=== PATIENT | female | born 1955 | race Caucasian/White ===

== ENCOUNTER 2017-06-20 07:55 | Inpatient (IN) ==
[2017-06-20] MEDS ORDERED: ALBUTEROL/IPRATROPIUM 2.5mg-0.5mg/3ml NEB IH ONE (08:18)
[2017-06-20] MEDS ORDERED: METHYLPREDNISOLONE SOD SUCC 125mg/2ml INJECTION IVP ONE (08:18)
--- OUTSIDE RECORDS SUMMARY | 2017-06-20 08:22 | External Medical Summary | Referral Summary ---
:1955 Author Organization [facility], Manjinder, Surgery Address [address] [place] [address] [place] [address] Care Team Providers Name Role Phone Unique Izquierdo Primary Care Physician Encounter VC Date(s): 01/04/15 - 01/04/15 [facility]jinder, Surgery [address] [place] [address] [place] [address]- Discharge Disposition: 01-Home or Self Care Attending Physician: Jerrell Gallardo MD Admitting Physician: Jerrell Gallardo MD Vital Signs No data available for this section Problem List Condition Effective Dates Status Health Status Informant Acne(Confirmed) Active Allergic rhinitis(Confirmed) Active Allergies(Confirmed) Active Chronic low back pain(Confirmed) Active Diabetes(Confirmed) Active Dry eyes(Confirmed) Active Hay fever(Confirmed) Active High cholesterol(Confirmed) Active Hyperlipidemia(Confirmed) Active Hypertension(Confirmed) Active Irregular heart rhythm(Confirmed) Active Irritable bowel syndrome(Confirmed) Active Lung cancer(Confirmed)1 04/2010 Active Overweight(Confirmed) Active Skin condition(Confirmed) Active Visual problems(Confirmed) Active 1Left Lung See Conversion Allergies, Adverse Reactions, Alerts Substance Reaction Severity Status Albuterol Sulfate Makes Pt Feel Very Dizzy Active azithromycin Hives Active Ipratropium Jber Makes Pt Feel Very Dizzy Active Levaquin Rash Active Swelling levofloxacin rash,swelling Active Medications aspirin 81 mg oral tablet, disintegrating 1 tabs, Oral, Daily Start Date: 01/05/14 Status: Orderedatorvastatin 40 mg oral tablet See Instructions, TAKE ONE TABLET BY MOUTH ONE TIME A DAY, # 90 tabs, 1 Refill(s ), eRx: [facility] #[id number], TAKE ONE TABLET BY MOUTH ONE TIME A DAY Start Date: 05/22/15 Status: Orderedbenazepril 20 mg oral tablet 20 mg 1 tabs, Oral, Daily, # 90 tabs, 3 Refill(s), Pharmacy: [facility] # [id number], 1 tabs Oral Daily Start Date: 07/15/15 Status: OrderedbuPROPion 100 mg oral tablet 100 mg 1 tabs, Oral, Daily, # 30 tabs, 0 Refill(s), other reason (Rx) Start Date: 01/28/15 Status: Orderedestradiol 0.5 mg oral tablet See Instructions, TAKE ONE TABLET BY MOUTH ONE TIME A DAY, # 90 tabs, 2 Refill(s ), eRx: [facility] #[id number], TAKE ONE TABLET BY MOUTH ONE TIME A DAY Start Date: 10/22/14 Status: OrderedFamvir 500 mg oral tablet 1 tabs, Oral, TID, When Have a Fever Blister Start Date: 01/05/14 Status: Orderedmeloxicam 15 mg oral tablet See Instructions, TAKE ONE TABLET BY MOUTH EVERY DAY, # 90 tabs, 2 Refill(s), eRx: [facility] #[id number], TAKE ONE TABLET BY MOUTH EVERY DAY Start Date: 10/22/14 Status: OrderedMultivitamins oral tablet 1 tabs, Oral, Daily, 0 Refill(s) Start Date: 01/05/14 Status: OrderedNorco 7.5 mg-325 mg oral tablet 1 tabs, Oral, q4hr, PRN, # 90 tabs, 0 Refill(s) Start Date: 01/28/15 Status: OrderedOnglyza 5 mg oral tablet See Instructions, TAKE ONE TABLET BY MOUTH DAILY, # 30 tabs, 6 Refill(s), Pharmacy: [facility]#[id number], TAKE ONE TABLET BY MOUTH DAILY Start Date: 04/03/15 Status: OrderedtraMADol 50 mg oral tablet 1-2 tabs, Oral, q6hr, Pain Severe (7-10), DUE FOR APPOINTMENT NEXT MONTH, # 180 tabs, 0 Refill(s) Start Date: 07/17/15 Status: Ordered Results No data available for this section Immunizations Vaccine Date Refusal Reason tetanus/diphth/pertuss (Tdap) adult/adol 12/02/07 influenza virus vaccine, inactivated1 03/23/14 influenza virus vaccine, live 03/08/13 influenza virus vaccine, live 02/26/12 pneumococcal 13-valent conjugate vaccine 01/28/15 pneumococcal 23-polyvalent vaccine 04/14/10 1Result Comment: [03/23/2014] see scanned doc Procedures Procedure Date Related Diagnosis Body Site Removal of tunneled central venous access device, 01/04/15 with subcutaneous port or pump, central or peripheral insertion Insertion of [id number] 05/27/10 Left Thoracotomy 2009 Hysterectomy2 1998 Appendectomy gall bladder 1for lung cancer, Dr. [id number] Social History Social History Type Response Smoking Status Former smoker; Type: Cigarettes1 1Quit In 2006 Assessment and Plan No data available for this section
--- OUTSIDE RECORDS SUMMARY | 2017-06-20 08:22 | External Medical Summary | Referral Summary ---
:1955 Author Organization [facility], Manjinder, Surgery Address [address] [place] [address] [place] [address] Care Team Providers Name Role Phone Unique Izquierdo Primary Care Physician Encounter VC Date(s): 12/28/14 - 12/28/14 [facility] [place], [address] [place] [address] [place] Discharge Diagnosis: History of lung cancer Discharge Diagnosis: Encounter for care related to Port-a-Cath Discharge Disposition: 01-Home or Self Care Attending Physician: Jerrell Gallardo MD Admitting Physician: Jerrell Gallardo MD Referring Physician: Stacie Lopez MD Vital Signs Most recent to oldest [Reference Range]: 1 Temperature Tympanic [36.6-38.1 degC] 37.1 degC (12/28/14 1:32 PM) Peripheral Pulse Rate [60-100 bpm] 80 bpm (12/28/14 1:32 PM) Blood Pressure [90-140/60-90 mmHg] 128/70 mmHg (12/28/14 1:32 PM) Problem List Condition Effective Dates Status Health [...] Very Dizzy Active azithromycin Hives Active Ipratropium Erwin Makes Pt Feel Very Dizzy Active Levaquin Rash Active Swelling levofloxacin rash,swelling Active Medications aspirin 81 mg oral tablet, disintegrating 1 tabs, Oral, Daily Start Date: 01/05/14 Status: Orderedatorvastatin 40 mg oral tablet See Instructions, TAKE ONE TABLET BY MOUTH ONE TIME A DAY, # 90 tabs, 1 Refill(s ), eRx: [facility] #[id number], TAKE ONE TABLET BY MOUTH ONE TIME A DAY Start Date: 05/22/15 Status: Orderedbenazepril 20 mg oral tablet 1 tabs, Oral, Daily, # 90 tabs, 3 Refill(s), Pharmacy: [facility], 1 tabs Oral Daily Start Date: 07/30/14 Status: OrderedbuPROPion 100 mg oral tablet 100 mg 1 tabs, Oral, Daily, # 30 tabs, 0 Refill(s), other reason (Rx) Start Date: 01/28/15 Status: Orderedestradiol 0.5 mg oral tablet See Instructions, TAKE ONE TABLET BY MOUTH ONE TIME A DAY, # 90 tabs, 2 Refill(s ), eRx: [facility] #[id number], TAKE ONE TABLET BY MOUTH ONE TIME A DAY Start Date: 10/22/14 Status: OrderedFamvir 500 mg oral tablet 1 tabs, Oral, TID, When Have a Fever Blister Start Date: 01/05/14 Status: Orderedmeloxicam 15 mg oral tablet See Instructions, TAKE ONE TABLET BY MOUTH EVERY DAY, # 90 tabs, 2 Refill(s), eRx: [facility] #[id number], TAKE ONE TABLET BY MOUTH EVERY DAY Start Date: 10/22/14 Status: OrderedMultivitamins oral tablet 1 tabs, Oral, Daily, 0 Refill(s) Start Date: 01/05/14 Status: OrderedNorco 7.5 mg-325 mg oral tablet 1 tabs, Oral, q4hr, PRN, # 90 tabs, 0 Refill(s) Start Date: 01/28/15 Status: OrderedOnglyza 5 mg oral tablet See Instructions, TAKE ONE TABLET BY MOUTH DAILY, # 30 tabs, 6 Refill(s), Pharmacy: [facility]#[id number], TAKE ONE TABLET BY MOUTH DAILY Start Date: 04/03/15 Status: OrderedtraMADol 50 mg oral tablet 1-2 tabs, Oral, q6hr, Pain Severe (7-10), # 180 tabs, 1 Refill(s) Start Date: 05/01/15 Status: Ordered Results No data available for this section Immunizations Vaccine Date Refusal Reason tetanus/diphth/pertuss (Tdap) adult/adol 12/02/07 influenza virus vaccine, inactivated1 03/23/14 influenza virus vaccine, live 03/08/13 influenza virus vaccine, live 02/26/12 pneumococcal 13-valent conjugate vaccine 01/28/15 pneumococcal 23-polyvalent vaccine 04/14/10 1Result Comment: [03/23/2014] see scanned doc Procedures Procedure Date Related Diagnosis Body Site Insertion of [id number] 05/27/10 Left Thoracotomy 2010 Hysterectomy2 1998 Appendectomy gall bladder 1for lung cancer, Dr. [id number] Social History Social History Type Response Smoking Status Former smoker; Type: Cigarettes1 1Quit In 2006 Assessment and Plan Extracted from: Title: Ambulatory Patient Education Author: Jerrell Gallardo MD Date: Surgery Tunneled Central Venous Catheter Flushing Guide A tunneled central venous catheter should be flushed after medicines, intravenous fluids, or nutrition have been given. Flushing the catheter helps prevent blood and medicine residue from collecting in the catheter and clogging it. The following are instructions to flush your tunneled central venous catheter. Your caregiver may also give you additional flushing instructions. GENERAL TUNNELED CENTRAL VENOUS CATHETER FLUSHING INFORMATION If possible, another person should help you when flushing the catheter. Always wash your hands before touching or flushing the catheter. Each access (lumen, port) of the catheter has a clamp. Open the clamp to flush the catheter or when infusions are being given. Keep the clamp closed when the catheter is not in use. Do not use force to flush the catheter. Do not use a small diameter syringe such as a 3 mL syringe to flush the catheter. Flushing the catheter with a small diameter syringe can burst the catheter. A 10 mL syringe should be used when flushing the catheter. Do not use a sharp-edged clamp (hemostat) to clamp the catheter. If the catheter has heparin instilled in the line, the heparin should be removed before using the catheter. The heparin helps the catheter from becoming clogged when it is not used on a regular basis. WITHDRAWING HEPARIN FROM THE TUNNELED CENTRAL VENOUS CATHETER When the tunneled central venous catheter is not used for long periods of time, heparin may be injected into the catheter lumen(s) and left to "dwell" until it is used again. If heparin has been instilled in the catheter, the heparin must be removed before it can be used. The following are steps to remove heparin from the tunneled central venous catheter: Gather the appropriate supplies as told by your caregiver. Wash your hands thoroughly with soap and water. Put on clean gloves. Vigorously scrub the injection cap for 15 seconds with an alcohol prep pad. Unclamp the catheter. Attach an empty 10 mL syringe to the injection cap. Pull back on the syringe plunger and withdraw 10 milliliters of blood. This is considered a "waste" withdrawal. Dispose the "waste" syringe into an appropriate waste container. Rescrub the injection cap for 15 seconds with an alcohol prep pad. Attach a prefilled 10 mL normal saline syringe to the injection cap. Flush the catheter with normal saline to clear away the blood in the catheter. The catheter can now be used for medicines, intravenous fluids, and nutrition. Follow your caregiver's advice regarding when the tunneled central venous catheter should be flushed with heparin. FLUSHING THE TUNNELED CENTRAL VENOUS CATHETER WITH NORMAL SALINE Normal saline is used to flush the catheter before and after medicines, intravenous fluids, and nutrition are given. It is important to check for a blood return before using the catheter. A blood r eturn is checked to ensure the catheter is open (patent) and is not clogged. The following are instructions to check for a blood return and flush the catheter with normal saline. Gather the appropriate supplies to flush the catheter as instructed by your caregiver. Wash your hands thoroughly with soap and water. Put on clean gloves. Vigorously scrub the injection cap for 15 seconds with an alcohol prep pad. Unclamp the catheter. Attach a 10 mL prefilled normal saline syringe to the injection cap. Flush 5 milliliters of normal saline into the catheter. Pull back on the attached syringe until you see blood in the catheter. W hen blood is identified in the catheter, flush the catheter with the remaining normal saline. The catheter can now be used for medicines, intravenous fluids, and nutrition. After medicines, intravenous fluids, or nutrition have been given, be sure to flush the catheter with 10 milliliters of normal saline. TROUBLESHOOTING THE TUNNELED CENTRAL VENOUS CATHETER If you cannot flush the catheter, check to make sure the catheter is unclamped. The injection cap may need to be changed if blood cannot be completely cleared from the cap or if there is a crack in the injection cap. If the catheter is difficult to flush, flush the catheter with 10 milliliters of normal saline using a "pulsing" flush method. If you do not see blood when you pull back the syringe plunger, change your body position. This can include raising your arms above your head or taking a deep breath and cough. Pull back on the plu nger again. If there is still no blood return, flush with a small amount of saline and change positions, take a deep breath, or cough again. Pull back on the plunger again. If there is still no blood re turn, finish injecting the normal saline. Disconnect the syringe and clamp the catheter. If you cannot get a blood return or the catheter continues to be difficult to flush, it is very important to contact your caregiver. The catheter may be clogged. Your caregiver can troubleshoot and fix problems with the catheter. SEEK IMMEDIATE MEDICAL CARE IF: You notice redness, swelling, pain, or have any type of drainage at or around the catheter insertion site. Your catheter is difficult to flush, or you cannot flush the catheter. You cannot get a blood return from the catheter. Your catheter leaks when flushed or when fluids are infused into it. There are cracks or breaks in the catheter. You have swelling on the arm nearest to the catheter. You have an unexplained fever. Document Released: 04/21/2012 Document Revised: 07/25/2012 Document Reviewed: 04/21/2012 ExitCare Patient Information 2015 [email or web address], [facility]. This information is not intended to replace advice given to you by your health care provider. Make sure you discuss any questions you have with your health care provider. No follow up information was provided. Extracted from: Title: Office Visit Note Author: Jerrell Gallardo MD Date: 12/28/14 Assessment/Plan Encounter for care related to Port-a-Cath Ordered: Office Visit Level 2 New [address]70 History of lung cancer Ordered: Office Visit Level 2 New [address]199 Plan: Removal of Power Port in the operative suite under conscious sedation. I did review the patient's chart including a prior office note performed from her oncologist. I did discuss with the patient what removal of her PowerPort catheter would entail and its associa rashaad risks which included but was not inclusive of bleeding and/or infection.. Patient understood and was scheduled. Future Scheduled TestsReferralReturn to Clinic 07/09/14 7:39 AM Referrals to Other Providers Referred by: Stacie Lopez MD
--- OUTSIDE RECORDS SUMMARY | 2017-06-20 08:22 | External Medical Summary | Referral Summary ---
:1955 Author Organization [facility], Manjinder[address] [place] [address] Care Team Providers Name Role Phone Unique Izquierdo Primary Care Physician Encounter VC Date(s): 03/31/16 - 03/31/16 [facility] [place] [place] [address]- Discharge Diagnosis: Hypertension Discharge Diagnosis: Chronic low back pain Discharge Disposition: 01-Home or Self Care Attending Physician: Unique Izquierdo DO Admitting Physician: Unique Izquierdo DO Vital Signs Most recent to oldest [Reference Range]: 1 Temperature Tympanic [36.6-38.1 degC] 37.6 degC (03/31/16 2:52 PM) Peripheral Pulse Rate [60-100 bpm] 99 bpm (03/31/16 2:52 PM) Blood Pressure [90-140/60-90 mmHg] 130/88 mmHg (03/31/16 2:52 PM) SpO2 96 % (03/31/16 2:52 PM) Problem List Condition Effective Dates Status [...] Very Dizzy Active azithromycin Hives Active Ipratropium Galvin Makes Pt Feel Very Dizzy Active Levaquin Rash Active Swelling levofloxacin rash,swelling Active Medications atorvastatin 40 mg oral tablet See Instructions, TAKE ONE TABLET BY MOUTH ONE TIME A DAY, # 90 tabs, 1 Refill(s ), Pharmacy: [facility] #[id number], TAKE ONE TABLET BY MOUTH ONE TIME A DAY Start Date: 03/31/16 Status: Orderedbenazepril 20 mg oral tablet 20 mg 1 tabs, Oral, Daily, # 90 tabs, 3 Refill(s), Pharmacy: [facility] # [id number], 1 tabs Oral Daily Start Date: 07/15/15 Status: OrderedbuPROPion 150 mg/24 hours (XL) oral tablet, extended release See Instructions, TAKE ONE TABLET BY MOUTH DAILY, # 30 tabs, eRx: [facility] #[id number], TAKE ONETABLET BY MOUTH DAILY Start Date: 03/11/16 Status: Orderedestradiol 0.5 mg oral tablet See Instructions, TAKE ONE TABLET BY MOUTH DAILY, # 90 tabs, 1 Refill(s), Pharmacy: [facility]#[id number], TAKE ONE TABLET BY MOUTH DAILY Start Date: 03/31/16 Status: OrderedFamvir 500 mg oral tablet 1 tabs, Oral, TID, When Have a Fever Blister Start Date: 01/05/14 Status: Orderedmeloxicam 15 mg oral tablet See Instructions, TAKE ONE TABLET BY MOUTH DAILY, # 30 tabs, eRx: [facility] #[id number], TAKE ONETABLET BY MOUTH DAILY Start Date: 03/11/16 Status: OrderedmetFORMIN 1000 mg oral tablet, extended release See Instructions, TAKE ONE TABLET BY MOUTH DAILY, # 30 unknown unit, 3 Refill(s) , eRx: [facility] #[id number], TAKE ONE TABLET BY MOUTH DAILY Start Date: 02/19/16 Status: OrderedMultivitamins oral tablet 1 tabs, Oral, Daily, 0 Refill(s) Start Date: 01/05/14 Status: OrderedNorco 7.5 mg-325 mg oral tablet 1 tabs, Oral, q4hr, PRN, # 90 tabs, 0 Refill(s) Start Date: 03/31/16 Status: OrderedtraMADol 50 mg oral tablet 1-2 tabs, Oral, q6hr, Pain Severe (7-10), # 180 tabs, 0 Refill(s) Start Date: 03/19/16 Status: Orderedtriamcinolone 0.5% topical cream See Instructions, APPLY TOPICALLY TO HANDS TWO TIMES A DAY NEEDED, # 20 g, 5 Refill(s), Pharmacy:[facility] #[id number] Start Date: 08/23/15 Status: OrderedVentolin HFA 90 mcg/inh inhalation aerosol 1 puffs, Inhalation, QID, as needed for wheezing, # 8 g, 6 Refill(s), Pharmacy: [facility] #[id number], 1 puffs Inhalation QID,PRN:as needed for wheezing Start Date: 08/26/15 Status: Ordered Results Chemistry Most recent to oldest [Reference Range]: 1 Sodium Lvl [135-144 mEq/L] 143 mEq/L (03/31/16 3:53 PM) Potassium Lvl [3.5-5.2 mEq/L] 4.7 mEq/L (03/31/16 3:53 PM) Chloride [99-111 mEq/L] 106 mEq/L (03/31/16 3:53 PM) CO2 [22-31 mEq/L] 28 mEq/L (03/31/16 3:53 PM) AGAP [3-20] 9 (03/31/16 3:53 PM) BUN [10-20 mg/dL] 22 mg/dL *HI* (03/31/16 3:53 PM) Glucose Lvl [70-99 mg/dL] 91 mg/dL (03/31/16 3:53 PM) Creatinine Lvl [0.57-1.11 mg/dL] 1.20 mg/dL *HI* (03/31/16 3:53 PM) eGFR [>60 mL/min] 46 mL/min 1 *ABN* (03/31/16 3:53 PM) Calcium Lvl [8.9-10.5 mg/dL] 9.9 mg/dL (03/31/16 3:53 PM) Albumin Lvl [3.5-5.0 gm/dL] 4.5 gm/dL (03/31/16 3:53 PM) Total Protein [6.1-7.7 gm/dL] 7.4 gm/dL (03/31/16 3:53 PM) Globulin [1.8-4.0 gm/dL] 2.9 gm/dL (03/31/16 3:53 PM) ALT [0-55 U/L] 34 U/L (03/31/16 3:53 PM) AST [5-34 U/L] 23 U/L (03/31/16 3:53 PM) Alk Phos [40-150 U/L] 108 U/L (03/31/16 3:53 PM) Bili Total [0.2-1.2 mg/dL] 0.3 mg/dL (03/31/16 3:53 PM) Hgb A1c [4.1-5.6 %] 7.6 % *HI* (03/31/16 3:53 PM) eAvg Glucose 171.4 mg/dL (03/31/16 3:53 PM) 1Result Comment: Multiply eGFR results by 1.21 for race. Immunizations Vaccine Date Refusal Reason tetanus/diphth/pertuss (Tdap) adult/adol 12/02/07 influenza virus vaccine, inactivated 03/31/16 influenza virus vaccine, inactivated1 03/23/14 influenza virus vaccine, live 03/08/13 influenza virus vaccine, live 02/26/12 pneumococcal 13-valent conjugate vaccine 01/28/15 pneumococcal 23-polyvalent vaccine 04/14/10 1Result Comment: [03/23/2014] see scanned doc Procedures Procedure Date Related Diagnosis Body Site Insertion of [id number] 05/27/10 Left Thoracotomy 2010 Hysterectomy2 1998 Appendectomy gall bladder 1for lung cancer, Dr. [id number] Social History Social History Type Response Smoking Status Former smoker; Type: Cigarettes1 1Quit In 2006 Assessment and Plan Extracted from: Title: Office Visit Note Author: Unique Izquierdo DO Date: 03/31/16 Assessment/Plan Chronic low back pain Continue current regimen, return to clinic in 6 months. She understands that if she needs an increase in her pain medication she must be seen sooner. Ordered: Office Visit Level 4 Est 09754 Diabetes A1c today with further recommendations after results. If in good control she can return to clinic in 6 months, if not she should return to clinic in 3 months. Ordered: Hemoglobin A1c Office Visit Level 4 Est 74288 Hyperlipidemia CMP today, we will try to get a fasting lipid panel at a time when she can more forward be cost. Ordered: Comprehensive Metabolic Panel Office Visit Level 4 Est 59544 Hypertension Continue current regimen at this time, return to clinic in 6 months. Ordered: Office Visit Level 4 Est 16386 Need for vaccination Flu shot provided today. Ordered: Office Visit Level 4 Est 61342
--- OUTSIDE RECORDS SUMMARY | 2017-06-20 08:22 | External Medical Summary | Continuity of Care Document ---
:1955 Author Organization [facility] Allergies There is no data. Medications There is no data. Problems There is no data. Procedures There is no data. Results There is no data. Encounters ACCT No. Visit Discharge Status Pt. Type Provider Facility Loc./Unit Complaint Date/Time [id number] 07/10/2013 07/10/2013 CLS Outpatient 08:55:00 23:59:59
--- OUTSIDE RECORDS SUMMARY | 2017-06-20 08:22 | External Medical Summary | Referral Summary ---
:1955 Author Organization [facility], Manjinder[address] [place] [address] Care Team Providers Name Role Phone Unique Izquierdo Primary Care Physician Encounter VC Date(s): 01/28/15 - 01/28/15 [facility] [address] [place] [phone] [place] Discharge Diagnosis: Immunization due Discharge Diagnosis: Chronic low back pain Discharge Diagnosis: Mixed hyperlipidemia Discharge Diagnosis: Diabetes Discharge Disposition: 01-Home or Self Care Attending Physician: Unique Izquierdo DO Admitting Physician: Unique Izquierdo DO Vital Signs Most recent to oldest [Reference Range]: 1 Temperature Tympanic [36.6-38.1 degC] 36.7 degC (01/28/15 9:05 AM) Peripheral Pulse Rate [60-100 bpm] 115 bpm *HI* (01/28/15 9:05 AM) Respiratory Rate [14-20 br/min] 17 br/min (01/28/15 9:05 AM) Blood Pressure [90-140/60-90 mmHg] 140/80 mmHg (01/28/15 9:05 AM) SpO2 97 % (01/28/15 9:05 AM) Problem List Condition Effective Dates Status Health [...] Very Dizzy Active azithromycin Hives Active Ipratropium [place] Makes Pt Feel Very Dizzy Active Levaquin Rash Active Swelling levofloxacin rash,swelling Active Medications aspirin 81 mg oral tablet, disintegrating 1 tabs, Oral, Daily Start Date: 01/05/14 Status: Orderedatorvastatin 40 mg oral tablet See Instructions, TAKE ONE TABLET BY MOUTH ONE TIME A DAY, # 90 tabs, 1 Refill(s ), eRx: [facility] #[id number], TAKE ONE TABLET BY MOUTH ONE TIME A DAY Start Date: 05/22/15 Status: Orderedbenazepril 20 mg oral tablet 20 mg 1 tabs, Oral, Daily, # 90 tabs, 3 Refill(s), Pharmacy: [facility] # [id number], 1 tabs Oral Daily Start Date: 07/15/15 Status: OrderedbuPROPion 100 mg oral tablet 100 mg 1 tabs, Oral, Daily, # 30 tabs, 0 Refill(s), other reason (Rx) Start Date: 01/28/15 Status: Orderedestradiol 0.5 mg oral tablet See Instructions, TAKE ONE TABLET BY MOUTH ONE TIME A DAY, # 90 tabs, 0 Refill(s ), Pharmacy: [facility] #[id number], TAKE ONE TABLET BY MOUTH ONE TIME A DAY Start Date: 07/25/15 Status: OrderedFamvir 500 mg oral tablet 1 tabs, Oral, TID, When Have a Fever Blister Start Date: 01/05/14 Status: Orderedmeloxicam 15 mg oral tablet See Instructions, TAKE ONE TABLET BY MOUTH EVERY DAY, # 90 tabs, 0 Refill(s), Pharmacy: [facility] #[id number], TAKE ONE TABLET BY MOUTH EVERY DAY Start Date: 07/25/15 Status: OrderedMultivitamins oral tablet 1 tabs, Oral, Daily, 0 Refill(s) Start Date: 01/05/14 Status: OrderedNorco 7.5 mg-325 mg oral tablet 1 tabs, Oral, q4hr, PRN, # 90 tabs, 0 Refill(s) Start Date: 01/28/15 Status: OrderedOnglyza 5 mg oral tablet See Instructions, TAKE ONE TABLET BY MOUTH DAILY, # 30 tabs, 6 Refill(s), Pharmacy: [facility]#[id number], TAKE ONE TABLET BY MOUTH DAILY Start [...] Date Related Diagnosis Body Site Insertion of [id number] 05/27/10 Left Thoracotomy 2010 Hysterectomy2 1998 Appendectomy gall bladder 1for lung cancer, Dr. [id number] Social History Social History Type Response Smoking Status Former smoker; Type: Cigarettes1 1Quit In 2006 Assessment and Plan Extracted from: Title: Ambulatory Patient Education Author: Unique Izquierdo DO Date: 01/28/15 Family Medicine Chronic Back Pain When back pain lasts longer than 3 months, it is called chronic back pain. People with chronic back pain often go through certain periods that are more intense (flare-ups). CAUSES Chronic back pain can be caused by wear and tear (degeneration) on different structures in your back. These structures include: The bones of your spine (vertebrae) and the joints surrounding your spinal cord and nerve roots (facets). The strong, fibrous tissues that connect your vertebrae (ligaments). Degeneration of these structures may result in pressure on your nerves. This can lead to constant pain. HOME CARE INSTRUCTIONS Avoid bending, heavy lifting, prolonged sitting, and activities which make the problem worse. Take brief periods of rest throughout the day to reduce your pain. Lying down or standing usually is better than sitting while you are resting. Take ixed-qdr-cesieoa or prescription medicines only as directed by your caregiver. SEEK IMMEDIATE MEDICAL CARE IF: You have weakness or numbness in one of your legs or feet. You have trouble controlling your bladder or bowels. You have nausea, vomiting, abdominal pain, shortness of breath, or fainting. Document Released: 06/10/2005 Document Revised: 07/25/2012 Document Reviewed: 04/16/2012 ExitCare Patient Information 2015 [employer] [facility]. This information is not intended to replace advice given to you by your health care provider. Make sure you discuss any questions you have with your health care provider. No follow up information was provided. Extracted from: Title: Office Visit Note Author: Unique Izquierdo DO Date: 01/28/15 Assessment/Plan Chronic low back pain will refill medication today, return to clinic in 6 mo. Ordered: Office Visit Level 4 Est 18487 Diabetes lab as below. will make adjustments as needed. Ordered: Hemoglobin A1c Office Visit Level 4 Est 34213 Immunization due Ordered: Office Visit Level 4 Est 63746 Mixed hyperlipidemia Ordered: Lipid Panel Office Visit Level 4 Est 32754 Orders: buPROPion, 100 mg 1 tabs, Oral, Daily, # 30 tabs, 0 Refill(s), other reason (Rx) HYDROcodone-acetaminophen, 1 tabs, Oral, q4hr, PRN, # 90 tabs, 0 Refill(s) traMADol, 1-2 tabs, Oral, q6hr, Pain Severe (7-10), # 180 tabs, 0 Refill(s)
--- OUTSIDE RECORDS SUMMARY | 2017-06-20 08:22 | External Medical Summary | Referral Summary ---
:1955 Author Organization [facility], Manjinder[address] [place] [address] Care Team Providers Name Role Phone Unique Izquierdo Primary Care Physician Encounter VC Date(s): 08/23/15 - 08/23/15 [facility] [address] [place] [phone] [place] Discharge Diagnosis: Hyperlipidemia Discharge Diagnosis: Chronic low back pain Discharge Diagnosis: Diabetes Discharge Diagnosis: Hypertension Discharge Disposition: 01-Home or Self Care Attending Physician: Unique Izquierdo DO Admitting Physician: Unique Izquierdo DO Vital Signs Most recent to oldest [Reference Range]: 1 Peripheral Pulse Rate [60-100 bpm] 100 bpm (08/23/15 2:27 PM) Respiratory Rate [14-20 br/min] 18 br/min (08/23/15 2:27 PM) Blood Pressure [90-140/60-90 mmHg] 128/78 mmHg (08/23/15 2:27 PM) SpO2 95 % (08/23/15 2:27 PM) Problem List Condition Effective Dates Status [...] Very Dizzy Active azithromycin Hives Active Ipratropium [place] Makes Pt Feel Very Dizzy Active Levaquin Rash Active Swelling levofloxacin rash,swelling Active Medications aspirin 81 mg oral tablet, disintegrating 1 tabs, Oral, Daily Start Date: 01/05/14 Status: Orderedatorvastatin 40 mg oral tablet See Instructions, TAKE ONE TABLET BY MOUTH ONE TIME A DAY, # 90 tabs, 1 Refill(s ), Pharmacy: [facility] #[id number], TAKE ONE TABLET BY MOUTH ONE TIME A DAY Start Date: 08/23/15 Status: Orderedbenazepril 20 mg oral tablet 20 mg 1 tabs, Oral, Daily, # 90 tabs, 3 Refill(s), Pharmacy: [facility] # [id number], 1 tabs Oral Daily Start Date: 07/15/15 Status: OrderedbuPROPion 150 mg/24 hours (XL) oral tablet, extended release 150 mg 1 tabs, Oral, q24hr, # 30 tabs, 5 Refill(s), Pharmacy: [facility] # [id number] Start Date: 08/23/15 Status: Orderedestradiol 0.5 mg oral tablet See Instructions, TAKE ONE TABLET BY MOUTH ONE TIME A DAY, # 90 tabs, 0 Refill(s ), Pharmacy: [facility] #[id number], TAKE ONE TABLET BY MOUTH ONE TIME A DAY Start Date: 07/25/15 Status: OrderedFamvir 500 mg oral tablet 1 tabs, Oral, TID, When Have a Fever Blister Start Date: 01/05/14 Status: Orderedmeloxicam 15 mg oral tablet See Instructions, TAKE ONE TABLET BY MOUTH EVERY DAY, # 90 tabs, 0 Refill(s), Pharmacy: [facility] #[id number], TAKE ONE TABLET BY MOUTH EVERY DAY Start Date: 07/25/15 Status: OrderedmetFORMIN 1000 mg oral tablet, extended release 1,000 mg 1 tabs, Oral, Daily, # 30 tabs, 5 Refill(s), Pharmacy: [facility] #[id number], 1 tabs Oral Daily Start Date: 08/23/15 Status: OrderedMultivitamins oral tablet 1 tabs, Oral, Daily, 0 Refill(s) Start Date: 01/05/14 Status: OrderedNorco 7.5 mg-325 mg oral tablet 1 tabs, Oral, q4hr, PRN, # 90 tabs, 0 Refill(s) Start Date: 08/23/15 Status: OrderedtraMADol 50 mg oral tablet 1-2 tabs, Oral, q6hr, Pain Severe (7-10), # 180 tabs, 5 Refill(s) Start Date: 08/23/15 Status: Orderedtriamcinolone 0.5% topical cream See Instructions, APPLY TOPICALLY TO HANDS TWO TIMES A DAY NEEDED, # 20 g, 5 Refill(s), Pharmacy:[facility] #[id number] Start Date: 08/23/15 Status: Ordered Results No data available for this section Immunizations Vaccine Date Refusal Reason tetanus/diphth/pertuss (Tdap) adult/adol 12/02/07 influenza virus vaccine, inactivated1 03/23/14 influenza virus vaccine, live 03/08/13 influenza virus vaccine, live 02/26/12 pneumococcal 13-valent conjugate vaccine 01/28/15 pneumococcal 23-polyvalent vaccine 04/14/10 1Result Comment: [03/23/2014] see scanned doc Procedures Procedure Date Related Diagnosis Body Site Insertion of [id number] 05/27/10 Left Thoracotomy 2010 Hysterectomy2 1998 Appendectomy gall bladder 1for lung cancer, Dr. Espitia-BSO Social History Social History Type Response Smoking Status Former smoker; Type: Cigarettes1 1Quit In 2006 Assessment and Plan Extracted from: Title: Office Visit Note Author: Unique Izquierdo DO Date: 08/23/15 Assessment/Plan Chronic low back pain Controlled substance agreement signed today. Tramadol and [place] refilled. Return to clinic in 6 months. We discussed that if she needsany increase in the amount of Norc o that she gets that she must come in for a visit sooner. Ordered: Office Visit Level 4 Est 52138 Diabetes We will get an A1c today. We will start the patient on [id number] mg daily. Ichecked needing [email or web address] this should be $4 for her. Ordered: Hemoglobin A1c Office Visit Level 4 Est 26733 Hyperlipidemia CMP today. Further recommendations after results. Ordered: Comprehensive Metabolic Panel Office Visit Level 4 Est 74267 Hypertension CMP today. Blood pressure appears well-controlled. Return to clinic in 6 months or sooner with problems. Ordered: Office Visit Level 4 Est 70286 Orders: atorvastatin, See Instructions, TAKE ONE TABLET BY MOUTH ONE TIME A DAY, # 90 tabs, 1 Refill(s), Pharmacy: [facility] #[id number], TAKE ONE TABLET BY MOUTH ONE TIME A DAY buPROPion, 150 mg 1 tabs, Oral, q24hr, # 30 tabs, 5 Refill(s), Pharmacy: [facility] #[id number] HYDROcodone-acetaminophen, 1 tabs, Oral, q4hr, PRN, # 90 tabs, 0 Refill(s) metFORMIN, 1,000 mg 1 tabs, Oral, Daily, # 30 tabs, 5 Refill(s), Pharmacy: [facility] #[id number], 1 tabs Oral Daily traMADol, 1-2 tabs, Oral, q6hr, Pain Severe (7-10), # 180 tabs, 5 Refill(s) triamcinolone topical, See Instructions, APPLY TOPICALLY TO HANDS TWO TIMES A DAY NEEDED, # 20 g, 5 Refill(s), Pharmacy: [facility] #[id number]
[2017-06-20] MEDS ORDERED: ALBUTEROL 2.5mg/3ml (0.083%) NEB AEROSOL ONE (08:30)
[2017-06-20] MEDS: SALINE FLUSH 10ml SYRINGE IVF PRN (08:37)
--- NOTE | 2017-06-20 08:53 | XRay Report ---
INDICATION: dyspnea PROCEDURE: CHEST 2-VIEWS UPRIGHT (PA & LAT) Encounter: Initial COMPARISON: June 09, 2010 FINDINGS: Patchy airspace opacities in the right middle lobe. Small left pleural effusion. No pneumothorax. Heart size and mediastinal contours are stable. Pulmonary vascularity is normal. Impression: Right-sided pneumonia. .
[2017-06-20] MEDS ORDERED: CEFTRIAXONE (ER USE ONLY) 1 GM in NS 100 ML IV ONE (09:06)
--- NOTE | 2017-06-20 09:15 | Emergency Department Report ---
SOB HPI - General Chief Complaint: Shortness of Breath/Dyspnea Stated Complaint: sob, getting worse from flu Time Seen by Provider: 06/20/17 08:13 - History of Present Illness 61-year-old female presents with shortness of breath. Patient was diagnosed with influenza and started on Tamiflu. Today would have been her last day to take Tamiflu. However when she woke this morning she was acutely short of breath and wheezing area she has been on a prednisone 50 mg daily dose for 5 days and using an albuterol nebulizer. She did not feel like she had a fever, however she did have sweats during the night last night. No tobacco use. She has had partial lung resection on the left for tumor removal. - Related Data Home Medications Medication Instructions Recorded Confirmed Meloxicam 15 mg PO DAILY #0 tab 01/03/15 06/20/17 Saxagliptin HCl [Onglyza] 5 mg PO DAILY #0 01/03/15 06/20/17 Albuterol HFA Inhaler [Ventolin 2 puff ORAL INH Q4H PRN 06/20/17 06/20/17 Hfa 90 mcg/actuation] Atorvastatin Calcium [Atorvastatin 40 mg PO DAILY 06/20/17 06/20/17 Calcium] Benazepril [Lotensin] 20 mg PO DAILY 06/20/17 06/20/17 BuPROPion XL [Wellbutrin Xl] 150 mg PO DAILY 06/20/17 06/20/17 Estradiol [Estrace] 0.5 mg PO DAILY 06/20/17 06/20/17 Hydrocodone/APAP 7.5/325 [[place] 1 tab PO Q4H PRN 06/20/17 06/20/17 7.5/325] Multivit with Iron-Minerals 1 tab PO DAILY 06/20/17 06/20/17 [Complete Senior] Tramadol [Ultram] 50 - 100 mg PO Q6H PRN 06/20/17 06/20/17 Allergies Allergy/AdvReac Type Severity Reaction Status Date / Time levofloxacin Allergy Mild RASH Verified 06/20/17 08:07 azithromycin Allergy Unknown Unverified 06/20/17 08:07 albuterol AdvReac Mild Verified 06/20/17 08:07 ipratropium AdvReac Mild Verified 06/20/17 08:07 Review of Systems All systems: reviewed and negative except as stated [facility] Medical History (Last Updated 03/16/17 @ 12:25 by Chery Noonan) Diabetes (Chronic Medical) Not insulin dependent. HTN (hypertension) (Chronic Medical) Surgical History: *Hysterectomy. *Left partial lobectomy. *Appendectomy - Social History Smoking status: Never smoker Substance use type: does not use Physical Exam - Limitations Limitations: no limitations - General General appearance: alert, in distress (beating very rapidly) - Normal Exams: Head:: Normocephalic without trauma Cardiovascular:: without murmur or gallop, Pulses 2+ all extremities, capillary refill, <2 seconds all extremities Abdomen:: Bowel sounds positive, soft, non-tender, non-distended, no hepatosplenomegaly, masses or bruits noted Neurological:: Patient is alert, and oriented, cranial nerves, motor/sensory/ cerebellar, exams w/o gross deficits, to observation Psychiatric:: Patient exhibits, appropriate attention, emotion and affect - Respiratory Respiratory exam: Present: respiratory distress, wheezes - Cardiovascular Cardiovascular exam: Present: normal rhythm, tachycardia Course Vital Signs Temperature 99.8 F 06/20/17 08:07 Pulse Rate 142 H 06/20/17 08:07 Respiratory Rate 36 H 06/20/17 08:07 Blood Pressure 136/71 06/20/17 08:07 Pulse Oximetry 89 L 06/20/17 08:07 Temperature 99.8 F 06/20/17 08:07 Pulse Rate 140 H 06/20/17 08:25 Respiratory Rate 22 06/20/17 08:25 Blood Pressure 136/71 06/20/17 08:07 Pulse Oximetry 94 06/20/17 08:25 Shortness of Breath/Dyspnea - [facility] Narrative Medical decision making narrative: IV fluids started, normal saline bolus 1 L. Albuterol nebulizer ordered and Solu -Medrol 125 given IV. CBC CMP ordered, CBC shows white count of 17 with significant left shift. Chest x-ray shows right middle lobe pneumonia. Patient is requiring 4 L nasal cannula to maintain sats at 94%. She does meet sepsis protocol. 1 L normal saline bolus and 1 g dose of Rocephin IV within required time. Lactate is currently pending. D-dimer returned at 330, due to having recently had influenza and then sedentary, as well as a sudden onset of shortness of breath, we will respect the elevated d-dimer and CT angiogram to rule out PE is ordered. She will be admitted to hospitalist - Differential Diagnosis Likely: acute exacerbation of chronic obstructive airways disease, community acquired pneumonia, asthma with exacerbation, pulmonary embolism - Medical Records Attestation: I reviewed the patient's medical records. - Lab Data Attestation: I reviewed the patient's lab results. Result diagrams: 06/20/17 08:25 06/20/17 08:25 Lab Results 06/20/17 06/20/17 06/20/17 Range/Units 08:25 08:25 08:25 WBC 17.3 H (4.5-11.0) T/MM3 RBC 4.79 (4.00-5.20) M/MM3 Hgb 14.1 (12-16) GM/DL Hct 43.1 (36-46) % MCV 90.0 (80-100) UM3 MCH 29.4 (26-34) UUG MCHC 32.7 (31-37) GM/DL RDW Std Deviation 46.9 (36.9-50.2) FL Plt Count 218 (130-400) T/MM3 MPV 9.4 (9.4-12.4) UM3 Immature Gran % (Auto) Not performed Neut % (Auto) Not performed Lymph % (Auto) Not performed [place] % (Auto) Not performed Eos % (Auto) Not performed Baso % (Auto) Not performed Neut # (Auto) Not performed Lymph # (Auto) Not performed [place] # (Auto) Not performed Eos # (Auto) Not performed Baso # (Auto) Not performed Abs Immat Gran (auto) Not performed Neutrophils % (Manual) 81.0 H (33-66) % Band Neutrophils % 7.0 H (0-6) % Lymphocytes % (Manual) 2.0 L (23-45) % Monocytes % (Manual) 10.0 H (0-9.0) % Neutrophils # (Manual) 14.0 H (1.8-7.7) T/MM3 Band Neutrophils # 1.2 T/MM3 Lymphocytes # (Manual) 0.3 L (1-4.8) T/MM3 Monocytes # (Manual) 1.7 H (0-0.8) T/MM3 RBC Morph Comment Normal D-Dimer 303 H (0-230) NG/ML Turbidity < 20 (0-20) Sodium 138 (134-144) MEQ/L Potassium 3.8 (3.6-5) MEQ/L Chloride 101 (98-107) MEQ/L Carbon Dioxide 22 (22-30) MEQ/L Anion Gap 15 (5-15) MEQ/L BUN 29.0 H (7-17) MG/DL Creatinine 1.1 (0.7-1.2) MG/DL GFR Calculation 51 BUN/Creatinine Ratio 26 (6-26) RATIO Glucose 295 H (65-110) MG/DL Calculated Osmolality 283 H (261-280) MOSM/KG Calcium 9.6 (8.4-10.2) MG/DL Total Bilirubin 0.40 (0.20-1.30) MG/DL Icterus Index < 2 (0-7) AST 29 (14-36) U/L ALT 56 H (9-52) U/L Alkaline Phosphatase 102 (38-126) U/L Troponin I < 0.012 (0-0.12) ng/ml B-Natriuretic Peptide 143 (0-175) pg/mL Total Protein 7.7 (6.3-8.2) G/DL Albumin 4.3 (3.5-5.0) G/DL Globulin 3.4 (2.4-3.6) G/DL Albumin/Globulin Ratio 1.3 (1.1-2.2) RATIO Specimen Hemolysis < 15 (0-25) - Radiology Data Attestation: I reviewed the patient's radiology results. Disposition Clinical Impression: Asthma with exacerbation, Community acquired pneumonia, Hypoxemia Disposition: 02 To [facility] Condition: Stable Prescriptions: No Action Meloxicam 15 mg PO DAILY #0 tab Hydrocodone/APAP 7.5/325 [[place] 7.5/325] 1 tab PO Q4H PRN PRN Reason: Pain Estradiol [Estrace] 0.5 mg PO DAILY Benazepril [Lotensin] 20 mg PO DAILY Atorvastatin Calcium [Atorvastatin Calcium] 40 mg PO DAILY BuPROPion XL [Wellbutrin Xl] 150 mg PO DAILY Multivit with Iron-Minerals [Complete Senior] 1 tab PO DAILY Saxagliptin HCl [Onglyza] 5 mg PO DAILY #0 Tramadol [Ultram] 50 - 100 mg PO Q6H PRN PRN Reason: Pain Albuterol HFA Inhaler [Ventolin Hfa 90 mcg/actuation] 2 puff ORAL INH Q4H PRN PRN Reason: Shortness Of Air/Wheezing Referrals: Unique Izquierdo DO [Family Provider] - Time of Disposition: 09:18 - Seen By: physician
[2017-06-20] MEDS ORDERED: IOHEXOL 350mg/ml 75ml INJECTION ONE (09:28)
[2017-06-20] MEDS ORDERED: SALINE FLUSH 10ml SYRINGE ONE (09:28)
--- NOTE | 2017-06-20 09:48 | History & Physical Report ---
History of Present Illness Date: 06/20/17 Chief complaint: SOA HPI: Trina is a 61 yo WF who was previously diagnosed with Influenza. Symptoms onset Wednesday or Wednesday. She was seen by Dr. Izquierdo, and started on Tamiflu. She is scheduled to complete Tamiflu course today, and has been taking prednisone as well. She reports she was feeling better until last night, when she went "downhill fast." She has been taking her Tamiflu as prescribed- has two doses left. She has been feeling more ill, and more SOA and presented to the ED today for further assessment. She has been found to be hypoxic, as well as showing clinical markers for sepsis. While in the ED, she in noted to have a mildly elevated D-Dimer. However, multiple risk factors for PE, including history of malignancy (not active), recent immobility, and +HRT (estrogen). She underwent CTA, which confirmed infiltrates, but no evidence of PE. Given severity of illness, hypoxia, sepsis, failed outpatient therapy- she is to be admitted under the care of the hospitalists. She reports she is feeling a bit better. We reviewed allergies- she states no allergy to any antibiotics or inhaled medications. She uses ProAir (albuterol) at home w/o difficulty. She only has issues with one OTC cold medication, which causes palpitations. She cannot recall the name. We reviewed current symptoms, at bedside- discussed plan of care and questions answered. Chart reviewed for collateral information. Review of Systems All systems PM: 10-point ROS was reviewed, no additional remarkable complaints except - Constitutional Constitutional: Present: anorexia, chills, fatigue, fever(s), headache(s) - Cardiovascular Cardiovascular: Present: dyspnea on exertion. Absent: chest pain, palpitations , edema - Respiratory Respiratory: Present: cough, dyspnea, dyspnea on exertion, wheezing, chest congestion. Absent: hemoptysis - Gastrointestinal Gastrointestinal: Present: diarrhea. Absent: abdominal pain, constipation - Musculoskeletal Musculoskeletal: Present: back pain (chronic) - Neurological Neurological: Present: headache(s) (earlier this week, resolved). Absent: convulsions, frequent falls Past Medical History Clinic Medical History Diabetes (Chronic Medical) Not insulin dependent. HTN (hypertension) (Chronic Medical) Adenocarcinoma of the left lung ([facility]. [facility]) oral HSV Anxiety/Depression HLD Surgical History: *Hysterectomy. *Left partial lobectomy (Dr. Oma Tripp). * Appendectomy. Port-a-cath insertion/removal Family History: Mother- CAD Father- unknown Family History Updates: as above. - Social History Smoking status: Former smoker Household members: spouse Current residence: Apartment/Private Home Medications Home Medications Medication Instructions Recorded Confirmed Type Meloxicam 15 mg PO DAILY #0 tab 01/03/15 06/20/17 History Saxagliptin HCl [Onglyza] 5 mg PO DAILY #0 01/03/15 06/20/17 History Albuterol HFA Inhaler [Ventolin 2 puff ORAL INH Q4H PRN 06/20/17 06/20/17 History Hfa 90 mcg/actuation] Atorvastatin Calcium [Atorvastatin 40 mg PO DAILY 06/20/17 06/20/17 History Calcium] Benazepril [Lotensin] 20 mg PO DAILY 06/20/17 06/20/17 History BuPROPion XL [Wellbutrin Xl] 150 mg PO DAILY 06/20/17 06/20/17 History Estradiol [Estrace] 0.5 mg PO DAILY 06/20/17 06/20/17 History Hydrocodone/APAP 7.5/325 [Sharon 1 tab PO Q4H PRN 06/20/17 06/20/17 History 7.5/325] Multivit with Iron-Minerals 1 tab PO DAILY 06/20/17 06/20/17 History [Complete Senior] Tramadol [Ultram] 50 - 100 mg PO Q6H PRN 06/20/17 06/20/17 History Allergies Allergy/AdvReac Type Severity Reaction Status Date / Time No Known Allergies Allergy Verified 06/20/17 11:23 Exam Vital Signs: Temperature 99.8 F 06/20/17 08:07 Pulse Rate 126 H 06/20/17 09:00 Respiratory Rate 28 H 06/20/17 09:00 Blood Pressure 142/74 H 06/20/17 09:15 Pulse Oximetry 93 06/20/17 09:00 Telemetry Rhythm: Sinus Tachycardia Height/Weight/BMI: Height 1.57 m Weight 106.9 kg - Constitutional Present: moderate distress, obese, cooperative - Routine HEENT Exam Head: Present: normocephalic, atraumatic Eye: Present: EOMI, PERRL ENT: Present: mucous membranes moist - Routine Neck Exam Present: supple. Absent: JVD, carotid bruit, swelling - Routine Respiratory Exam Present: dyspnea (mild-moderate), decreased breath sounds, rhonchi, wheezes, diminished air movement - Routine Cardiovascular Exam Present: RRR, S1, S2, no murmur - Routine Abdominal Exam Present: soft, normoactive bowel sounds, non distended, non tender - Routine Extremities Exam Present: no edema, non tender. Absent: calf tenderness, Teresa's sign - Routine Skin Exam Present: intact, dry, warm - Routine Neurological Exam Present: alert, oriented X3, CN II-XII intact, moving all extremities - Routine Psychiatric Exam Present: normal affect, cooperative, good insight Results - Labs CBC & Chem 7: 06/20/17 08:25 06/20/17 08:25 Microbiology Results: Microbiology 06/20/17 09:17 Urine, Voided (Cc/notcc) Urine Culture - Preliminary Culture Initiated - Results Pending 06/20/17 08:30 Peripheral/Iv Start Blood Culture - Preliminary Culture Initiated - Results Pending 06/20/17 08:25 Peripheral/Iv Start Blood Culture - Preliminary Culture Initiated - Results Pending - Imaging and Cardiology Chest x-ray Status: image reviewed by me Additional comments: FINDINGS: Patchy airspace opacities in the right middle lobe. Small left pleural effusion. No pneumothorax. Heart size and mediastinal contours are stable. Pulmonary vascularity is normal. Impression: Right-sided pneumonia. . CT scan - chest Status: image reviewed by me, pending Additional comments: CT chest Negative for PE Patchy infiltrates. Final pending Assessment and Plan (1) Community acquired pneumonia Current visit: Yes Status: Acute (2) Hypoxemia Current visit: Yes Status: Acute Assessment and Plan: Impression: Influenza Post-viral CAP Acute hypoxemic respiratory failure Sepsis DM2 HTN HLD Hx of adenocarcinoma of the lung HRT on estrogen Anxiety/depression Plan: 06/19/17 Dr. Berrios PCP: Dr. Jordy Izquierdo Sepsis guidelines- start aggressive abx therapy. Antibiotics/Steroids. O2. She is not allergic to nebulized medications- will start. IV steroids. IVF. Tele. Monitor CXR. Insulin for BG control. ADA diet. Insulin for BG control. Continue home medications as appropriate. Aggressive DVT px. Hold HRT given risk of DVT. D/W pt and -they are in agreement. DVT Prophylaxis: SCD's, Lovenox Resuscitation Status: Full Code - Physician Narrative Physician: Win Berrios MD Narrative: Date: 06/20/17 Time: 1420 I have independently evaluated and examined this patient. I reviewed the chart, the patient's history, and the PAGINATOR/PA's documented findings as above. We discussed and formulated the assessment and plan as above with additions as below: 61 yo dx with influenza on Wed. She felt she was getting better until becoming quite soa last night. She presented to the ED. She says her breathing is better now that she is getting O2 (2L/min). She reports getting soa talking though. She had f/c at home. She has been taking Tamiflu and prednisone. CXR and CT were consistent with pneumonia. She says she is coughing but unable to produce sputum. NAD. Lungs have rhonchi and decreased breath sounds. RRR. S/NT/ND +BS. No edema. Will continue Tamiflu and start Rocephin/Zithromax. Follow lactate level. 1 L NS. Breathing treatments, Solu-medrol and mucolytics. CTA ruled out PE. Will place on Lantus/Novolog while hospitalized. Encourage activity. Lovenox for DVT ppx. Sepsis Assessment - Evaluation SIRS Criteria: pulse > 90 beats/minute, WBC > 12,000, RR > 20 Severe Sepsis: lactate > 2.0 mg/dL Hospital Course Summary Disclaimer: The visit summary below is not to be considered part of the above Progress Note. Hospital Course: Impression: Influenza Post-viral CAP Acute hypoxemic respiratory failure Sepsis DM2 HTN HLD Hx of adenocarcinoma of the lung HRT on estrogen Anxiety/depression Plan: 06/19/17 Dr. Berrios PCP: Dr. Jordy Izquierdo Sepsis guidelines- start aggressive abx therapy. Antibiotics/Steroids. O2. She is not allergic to nebulized medications- will start. IV steroids. IVF. Tele. Monitor CXR. Insulin for BG control. ADA diet. Insulin for BG control. Continue home medications as appropriate. Aggressive DVT px. Hold HRT given risk of DVT. D/W pt and -they are in agreement. Will continue Tamiflu and start Rocephin/Zithromax. Follow lactate level. 1 L NS. Breathing treatments, Solu-medrol and mucolytics. CTA ruled out PE. Will place on Lantus/Novolog while hospitalized. Encourage activity. Lovenox for DVT ppx.
[2017-06-20 10:33] VITALS: BMI 43.2
[2017-06-20] MEDS ORDERED: HYDROCODONE/APAP 7.5 MG/325 MG TABLET PO PRN (11:29)
[2017-06-20] MEDS ORDERED: ALBUTEROL 2.5mg/3ml (0.083%) NEB AEROSOL PRN (11:33)
[2017-06-20] MEDS ORDERED: DEXTROSE 50% SYRINGE 50ml (1 AMP) IVP PRN (11:36)
[2017-06-20] MEDS ORDERED: GLUCOSE ORAL GEL 40% 37.5gm PO PRN (11:36)
[2017-06-20] MEDS: INSULIN ASPART 100unit/ml INJECTION SQ PRN ×3 (12:32→20:18)
[2017-06-20] MEDS: BuPROPion XL 150mg (24HR) TABLET PO SCH (12:33)
[2017-06-20] MEDS: TRAMADOL 50 MG TABLET PO PRN ×2 (12:33→20:25)
[2017-06-20] MEDS ORDERED: GUAIFENESIN 400MG TABLET PO PRN (14:23)
[2017-06-20] MEDS: BUDESONIDE INH.SOLN 0.5mg/2ml NEB AEROSOL SCH ×2 (14:31→19:49)
[2017-06-20] MEDS: ALBUTEROL/IPRATROPIUM 2.5mg-0.5mg/3ml NEB AEROSOL SCH ×2 (14:31→19:49)
[2017-06-20] MEDS ORDERED: NS 1,000 ML IV SCH (14:45)
[2017-06-20] MEDS: ENOXAPARIN 40 MG/0.4 ML INJECTION SQ SCH (14:58)
[2017-06-20] MEDS: METHYLPREDNISOLONE SOD SUCC 125mg/2ml INJECTION IVP SCH ×2 (14:58→20:22)
[2017-06-20] MEDS: AZITHROMYCIN IV 500 MG in NS 250ml 250 ML IV SCH (14:59)
[2017-06-20] MEDS: ATORVASTATIN 40 MG TABLET PO SCH (20:16)
[2017-06-20] MEDS: INSULIN GLARGINE 100unit/ml INJECTION SQ SCH (20:16)
[2017-06-21] MEDS: METHYLPREDNISOLONE SOD SUCC 125mg/2ml INJECTION IVP SCH ×3 (03:09→20:47)
[2017-06-21] MEDS: INSULIN ASPART 100unit/ml INJECTION SQ PRN (06:29)
[2017-06-21] MEDS: ALBUTEROL/IPRATROPIUM 2.5mg-0.5mg/3ml NEB AEROSOL SCH ×4 (07:30→19:10)
[2017-06-21] MEDS: BUDESONIDE INH.SOLN 0.5mg/2ml NEB AEROSOL SCH ×2 (07:30→19:09)
[2017-06-21] MEDS: BuPROPion XL 150mg (24HR) TABLET PO SCH (08:26)
[2017-06-21] MEDS: ENOXAPARIN 40 MG/0.4 ML INJECTION SQ SCH (08:26)
--- NOTE | 2017-06-21 08:51 | CT Scan Report ---
Indication: dyspnea PROCEDURE: CT angio pulm emboli: Encounter: Initial Comparison: None Technique: Axial CT pulmonary angiographic phase images were performed through the chest after the administration of intravenous contrast. Coronal and Sagittal three-dimensional volume rendered reconstructed images were created and reviewed. Automated Exposure Control and Iterative Reconstruction dose reducing techniques were utilized. Contrast: Omnipaque 350 70 mL FINDINGS: There are scattered patchy somewhat centrilobular poorly defined nodules with both upper and lower lung zone distribution. Pulmonary arteries: There is no evidence for right heart strain. No filling defects to suggest acute pulmonary embolus. Cardiovascular: No pericardial effusion. Cardiac size is normal. No pericardial effusion. Aorta is well opacified. There is no aortic dissection. Lymph nodes: No supraclavicular adenopathy. There are no enlarged axillary, hilar, or mediastinal lymph nodes. Pleura: No pleural effusion is present. There is perhaps mild degenerative disc disease of the thoracic spine. The vertebral body heights appear relatively well-preserved. IMPRESSION: Nonspecific, somewhat scattered and poorly defined centrilobular this could represent postinfectious or postinflammatory process. .
[2017-06-21] MEDS: TRAMADOL 50 MG TABLET PO PRN ×2 (09:05→20:46)
--- NOTE | 2017-06-21 09:32 | XRay Report ---
Indication: pneumonia PROCEDURE: XR chest 2V: Encounter: Initial Comparison: CT angio chest dated 06/20/2017 Findings: There are scant patchy poorly defined interstitial appearing nodular opacities in the mid to lower lung peralta with blunting of the left costophrenic angle. Overall heart size is normal. No definite pulmonary vascular congestion. Impression: Scattered nonspecific patchy somewhat poorly defined nodular opacities with blunting of the left costophrenic angle, likely representing pleural parenchymal scarring. No significant change from prior exam. .
[2017-06-21] MEDS: CEFTRIAXONE 1 G in NS 50 ML IV SCH (09:38)
[2017-06-21] MEDS ORDERED: VANCOMYCIN - PHARMACY CONSULT MC ONE (09:42)
--- NOTE | 2017-06-21 11:01 | Pharmacy Consult-Antibiotics ---
Pharmacy Consult-Vancomycin - Laboratory Information WBC 17.8 T/MM3 (4.5-11.0) H 06/21/17 03:54 BUN 25.0 MG/DL (7-17) H 06/21/17 03:54 Creatinine 1.0 MG/DL (0.7-1.2) 06/21/17 03:54 - Consult Information VANCOMYCIN CONSULT: Dx: Pneumonia Current Renal Fx: SCr = 1.0mg/dl. Will give Vancomycin 1,500mg IV q12hrs. Will continue to monitor and adjust regimen to maintain therapeutic levels. Thank you.
[2017-06-21] MEDS ORDERED: INSULIN ASPART 100unit/ml INJECTION SQ ONE ×4 (11:30→20:46)
--- NOTE | 2017-06-21 11:59 | Progress Note ---
- Date 06/21/17 Subjective: Says her breathing is getting better. Just getting back to bed after walking around in the room and is soa. Cough is more productive. Says her appetite is improving. She says her chronic low back pain is not any different than usual. Objective Vital signs: Temperature 96.2 F L 06/21/17 07:54 Pulse Rate 107 H 06/21/17 08:00 Respiratory Rate 24 06/21/17 11:16 Blood Pressure 141/82 H 06/21/17 07:54 Pulse Oximetry 95 06/21/17 11:16 Height/Weight/BMI: Height 5 ft 2 in Weight 105.8 kg Body Mass Index 43.2 - Constitutional Present: well nourished, well developed - Routine HEENT Exam Eye: Present: EOMI ENT: Present: mucous membranes moist - Routine Respiratory Exam Present: decreased breath sounds, rhonchi - Routine Cardiovascular Exam Present: RRR, no murmur - Routine Abdominal Exam Present: soft, normoactive bowel sounds, non distended, non tender - Routine Extremities Exam Present: no edema - Routine Neurological Exam Present: alert, oriented X3, moving all extremities Results - Labs CBC & Chem 7: 06/21/17 03:54 06/21/17 03:54 Assessment and Plan (1) Community acquired pneumonia Current visit: Yes Status: Acute (2) Hypoxemia Current visit: Yes Status: Acute Assessment and Plan: Impression: Influenza Post-viral CAP s. aureus bactermia Acute hypoxemic respiratory failure Sepsis DM2, uncontrolled on steroids HTN HLD Hx of adenocarcinoma of the lung HRT on estrogen Anxiety/depression Plan: Lactate down to 1.6. Continuing rocephin/zithromax. Starting Vanco. Will consult Dr. Jackson. Repeat blood cx in AM. Decrease iv steroids to q12. O2. Continue nebulized medications. IVF. Tele. Monitor CXR. Insulin for BG control. ADA diet. Increase sliding scale. Continue home medications as appropriate. Aggressive DVT px. Hold HRT given risk of DVT. - Physician Narrative Narrative: Date: 06/21/17 Time: 1154 Hospital Course Summary Disclaimer: The visit summary below is not to be considered part of the above Progress Note. Hospital Course: Impression: Influenza Post-viral CAP Acute hypoxemic respiratory failure Sepsis DM2 HTN HLD Hx of adenocarcinoma of the lung HRT on estrogen Anxiety/depression Plan: 06/20/17 Dr. Berrios PCP: Dr. Jordy Izquierdo Sepsis guidelines- start aggressive abx therapy. Antibiotics/Steroids. O2. She is not allergic to nebulized medications- will start. IV steroids. IVF. Tele. Monitor CXR. Insulin for BG control. ADA diet. Insulin for BG control. Continue home medications as appropriate. Aggressive DVT px. Hold HRT given risk of DVT. D/W pt and -they are in agreement. Will continue Tamiflu and start Rocephin/Zithromax. Follow lactate level. 1 L NS. Breathing treatments, Solu-medrol and mucolytics. CTA ruled out PE. Will place on Lantus/Novolog while hospitalized. Encourage activity. Lovenox for DVT ppx. 06/21
[2017-06-21] MEDS: AZITHROMYCIN IV 500 MG in NS 250ml 250 ML IV SCH (14:20)
[2017-06-21] MEDS: ATORVASTATIN 40 MG TABLET PO SCH (20:46)
[2017-06-21] MEDS: SALINE FLUSH 10ml SYRINGE IVF PRN (20:47)
[2017-06-21] MEDS: INSULIN GLARGINE 100unit/ml INJECTION SQ SCH (20:47)
[2017-06-22] MEDS: ALBUTEROL/IPRATROPIUM 2.5mg-0.5mg/3ml NEB AEROSOL SCH ×4 (06:35→19:00)
[2017-06-22] MEDS: BUDESONIDE INH.SOLN 0.5mg/2ml NEB AEROSOL SCH ×2 (06:35→19:00)
[2017-06-22] MEDS: INSULIN ASPART 100unit/ml INJECTION SQ PRN ×3 (06:55→21:03)
[2017-06-22] MEDS: TRAMADOL 50 MG TABLET PO PRN ×3 (08:01→21:01)
[2017-06-22] MEDS: METHYLPREDNISOLONE SOD SUCC 125mg/2ml INJECTION IVP SCH ×2 (08:01→21:03)
[2017-06-22] MEDS: BuPROPion XL 150mg (24HR) TABLET PO SCH (08:01)
[2017-06-22] MEDS: ENOXAPARIN 40 MG/0.4 ML INJECTION SQ SCH (08:03)
[2017-06-22] MEDS: CEFTRIAXONE 1 G in NS 50 ML IV SCH (08:03)
[2017-06-22] MEDS: BENAZEPRIL 20 MG TABLET PO SCH (10:22)
--- NOTE | 2017-06-22 10:46 | Progress Note ---
- Date 06/22/17 Subjective: Patient seen during her nebulizer treatment. She has many questions about her plan of care. She is feeling better. Cough and breathing are improving. No CP , n/v. Bowels are moving. Appetite is good. O2 needs are improving. Down to 0.5L from 2L. Objective Vital signs: Temperature 97.1 F 06/22/17 07:00 Pulse Rate 96 06/22/17 07:00 Respiratory Rate 22 06/22/17 10:10 Blood Pressure 151/87 H 06/22/17 08:09 Pulse Oximetry 96 06/22/17 10:10 Height/Weight/BMI: Height 1.57 m Weight 106.7 kg Body Mass Index 43.2 - Constitutional Present: no acute distress, well nourished, well developed, obese - Routine HEENT Exam Head: Present: normocephalic, atraumatic - Routine Respiratory Exam Present: CTA bilaterally. Absent: wheezes Comments: post breathing tx - Routine Cardiovascular Exam Present: RRR, no murmur - Routine Abdominal Exam Present: soft, non distended, non tender - Routine Extremities Exam Present: no edema, normal capillary refill - Routine Skin Exam Present: dry, warm - Routine Neurological Exam Present: alert, oriented X3 - Routine Lymphatic Exam Lymphatic: Absent: adenopathy - Routine Psychiatric Exam Present: normal affect, cooperative Results - Labs CBC & Chem 7: 06/22/17 07:59 06/22/17 07:59 Labs: Laboratory Tests 06/20/17 06/21/17 06/22/17 08:25 03:54 07:59 WBC 17.3 H 17.8 H 17.4 H Laboratory Tests 06/21/17 06/21/17 06/21/17 11:15 17:33 20:38 Glucometer 402 395 375 Microbiology Results: Microbiology 06/22/17 07:59 Peripheral/Iv Start Blood Culture - Preliminary Culture Initiated - Results Pending 06/22/17 07:58 Peripheral/Iv Start Blood Culture - Preliminary Culture Initiated - Results Pending 06/21/17 15:45 Sputum, Cf Patient Gram Stain - Final 06/21/17 15:45 Sputum, Cf Patient Sputum Culture - Preliminary Culture Initiated - Results Pending Assessment and Plan (1) Community acquired pneumonia Current visit: Yes Status: Acute (2) Hypoxemia Current visit: Yes Status: Acute Assessment and Plan: Impression Influenza Post-viral CAP S. aureus bactermia Acute hypoxemic respiratory failure Sepsis - resolved DM2, uncontrolled on steroids HTN HLD Hx of adenocarcinoma of the lung HRT on estrogen (on hold) Anxiety/depression Morbid Obesity Plan Blood cultures were redrawn this morning. Vancomycin was started last night after + staph aureus found in admission blood cultures. Continues on Rocephin and azithromycin. Dr. Jackson will see patient tomorrow. Solu-Medrol 125 mg was decreased from every 6 hours to every 12. Continue duo nebs, Pulmicort, Acapella. Blood glucose averaging > 300 despite nightly Lantus and sliding scale. Continue Lantus at bedtime and start scheduled before meal NovoLog 10 units. Continue sliding scale as needed. Resume saxagliptin tomorrow. Blood pressures are high enough at this point to restart her home benazepril. HRT on hold due to DVT risk. Case discussed with Dr. Gunn. DVT Prophylaxis: Lovenox - Time spent with patient Time with patient PN: 25 minutes - Physician Narrative Physician: Marco Gunn MD Narrative: Date: 06/22/17 Time: 8198 Have independently interviewed and examined pt. Chart reviewed. Case discussed with CM and my PA. Care plan developed with my supervision; agree with above. Feels like she is improving. Moving air better, less wheezy. Still notes cough/ congestion-not mobilizing sputum. Uses Acapella routinely and does find it helpful. Able to move more, but winds and tired quickly with activities. No mouth pain or pain with swallow. Appetite improving. Denies ab pain or nausea. Urinating well. Lungs: decreased bilaterally, diffuse end expiratory wheezes. Mild conversational dyspnea despite O2 therapy. CV: regular AB: soft nt/nd +BS EXT: trace edema bilaterally in LE. HEENT: no thrush, mmm. MSE: awake alert appropriate Plan: Continue with Rocephin and Vancomycin for antimicrobial coverage- sensitivities from pending at time of my evaluation. Dr Jackson to see patient tomorrow for ID recommendations. Continue Neb treatments and acapella. Increase activities as able. Monitor lab. Restart home saxagliptin as sugars high due to steroids-continue Lantus and and ISS. Hospital Course Summary Disclaimer: The visit summary below is not to be considered part of the above Progress Note. Hospital Course: 2/4/18 Solumedrol 125mq IV q 6hrs. Will continue Tamiflu and start Rocephin/Zithromax. Follow lactate level. Will place on Lantus/Novolog while hospitalized. Lovenox for DVT ppx.Hold HRT given risk of DVT. CTA ruled out PE. 06/21/17 Sugars high - increase sliding scale. Decrease IV steroids to q 12 hrs. Vanco started following results of + staph aureus on blood cultures. Redraw in am. Continue Rocephin and Zithromax. Consult Dr. Jackson. 06/22/17 Blood cultures were redrawn this morning. Vancomycin was started last night after + staph aureus found in admission blood cultures. Continues on Rocephin and azithromycin. Dr. Jackson will see patient tomorrow for ID evaluation. Solu-Medrol 125 mg was decreased from every 6 hours to every 12. BS >300 despite SSI. Continue Lantus at bedtime and start scheduled before meal NovoLog 10 units. May restart home saxagliptin. Restart her home benazepril.
[2017-06-22] MEDS: INSULIN ASPART 100unit/ml INJECTION SQ SCH ×2 (12:22→17:11)
[2017-06-22] MEDS ORDERED: INSULIN ASPART 100unit/ml INJECTION SQ ONE (12:25)
[2017-06-22] MEDS: AZITHROMYCIN IV 500 MG in NS 250ml 250 ML IV SCH (14:33)
[2017-06-22] MEDS: ATORVASTATIN 40 MG TABLET PO SCH (21:02)
[2017-06-22] MEDS: INSULIN GLARGINE 100unit/ml INJECTION SQ SCH (21:02)
[2017-06-22] MEDS: SALINE FLUSH 10ml SYRINGE IVF PRN (21:04)
[2017-06-23] MEDS: SALINE FLUSH 10ml SYRINGE IVF PRN (04:42)
[2017-06-23] MEDS: BUDESONIDE INH.SOLN 0.5mg/2ml NEB AEROSOL SCH ×2 (07:50→19:29)
[2017-06-23] MEDS: ALBUTEROL/IPRATROPIUM 2.5mg-0.5mg/3ml NEB AEROSOL SCH ×4 (07:50→19:29)
[2017-06-23] MEDS: METHYLPREDNISOLONE SOD SUCC 125mg/2ml INJECTION IVP SCH (08:15)
[2017-06-23] MEDS: BENAZEPRIL 20 MG TABLET PO SCH (08:17)
[2017-06-23] MEDS: SAXAGLIPTIN 5 MG PO SCH ×2 (08:17→10:43)
[2017-06-23] MEDS: BuPROPion XL 150mg (24HR) TABLET PO SCH (08:18)
[2017-06-23] MEDS: INSULIN ASPART 100unit/ml INJECTION SQ PRN ×4 (08:19→21:03)
[2017-06-23] MEDS: INSULIN ASPART 100unit/ml INJECTION SQ SCH ×3 (08:19→17:54)
[2017-06-23] MEDS: CEFTRIAXONE 1 G in NS 50 ML IV SCH (08:20)
[2017-06-23] MEDS: TRAMADOL 50 MG TABLET PO PRN ×3 (08:23→21:03)
--- NOTE | 2017-06-23 08:30 | Progress Note ---
- Date 06/23/17 Subjective: Patient seen sitting in her bed. She reports she is feeling better. She had her breathing tx an hour ago, but she has audible wheezing. She states she has been talking for the past 40 minutes and feels like this is why she is more wheezy. No CP, nausea or vomiting. Bowels are moving. Objective Vital signs: Temperature 97.7 F 06/23/17 07:16 Pulse Rate 86 06/23/17 07:16 Respiratory Rate 22 06/23/17 07:50 Blood Pressure 148/69 H 06/23/17 07:16 Pulse Oximetry 97 06/23/17 07:50 Height/Weight/BMI: Height 1.57 m Weight 106.9 kg Body Mass Index 43.2 - Constitutional Present: no acute distress, well nourished, well developed - Routine HEENT Exam Head: Present: normocephalic, atraumatic - Routine Respiratory Exam Present: wheezes Comments: diffuse - Routine Cardiovascular Exam Present: RRR, no murmur - Routine Abdominal Exam Present: soft, non distended, non tender - Routine Extremities Exam Present: no edema, normal capillary refill - Routine Skin Exam Present: dry, warm - Routine Neurological Exam Present: alert, oriented X3 - Routine Lymphatic Exam Lymphatic: Absent: adenopathy - Routine Psychiatric Exam Present: normal affect, cooperative Results - Labs CBC & Chem 7: 06/23/17 04:14 06/23/17 04:14 Microbiology Results: Microbiology 06/22/17 07:58 Peripheral/Iv Start Blood Culture - Preliminary No Growth After 1 Day 06/22/17 07:59 Peripheral/Iv Start Blood Culture - Preliminary No Growth After 1 Day 06/21/17 15:45 Sputum, Cf Patient Gram Stain - Final 06/21/17 15:45 Sputum, Cf Patient Sputum Culture - Preliminary Normal Respiratory Esther Present Assessment and Plan (1) Community acquired pneumonia Current visit: Yes Status: Acute (2) Hypoxemia Current visit: Yes Status: Acute Assessment and Plan: Impression Influenza Post-viral CAP S. aureus bactermia Leukocytosis - POA Acute hypoxemic respiratory failure Sepsis - resolved DM2, uncontrolled on steroids (A1c 10.1) HTN HLD Hx of adenocarcinoma of the lung HRT on estrogen (on hold) Anxiety/depression Morbid Obesity Plan Increase Lantus from 15 to 20 and ac Novolog from 10 to 14. Saxagliptin resumed today. Resume metformin at 500mg BID (home dose was 1000mg BID) as pt is having some diarrhea. Will titrate up as tolerated. BS's still >300. Watch BS closely given the resumption of po meds and decrease in steroids. DC Solumedrol. Start Prednisone 40mg po. Dr Jackson saw pt and recommended Ancef q 8 hrs IV x 4 wks. Case management is working on arranging this to hopefully be done at home. Vanco DC'd, Ancef initiated. Start Culturelle for diarrhea likely associated with atbx. Luis A Assessment as above with: Staph aureus bacteremia with DELANO. Will stop Solu-Medrol and start Prednisone 40mg daily starting this afternoon. DVT Prophylaxis: Lovenox - Time spent with patient Time with patient PN: 25 minutes - Physician Narrative Physician: Marco Gunn MD Narrative: Date: 06/23/17 Time: 1540 Have independently interviewed and examined pt. Chart reviewed. Case discussed with CM & my PA. Care plan developed with my supervision; agree with above. Feels like she is improving. Not as weak and washed out. Less cough, sputum difficult to mobilize at times. Did wake to nurses station this am-very winded and wheezy with these activities, but O2 saturations didn't decrease as much. Breathing well on RA currently. Eating well. No nausea or ab pain. Not feeling dizzy or unsteady with positional changes. Lungs: decreased bilaterally, improving air movement. Faint diffuse wheezes bilaterally. CV: regular AB: soft nt/nd MSE: awake alert appropriate Plan: Dr Jackson recommends changing antibiotics to Ancef - will need a 4 week course. BC positive for MSSA. Repeat BC pending. Would wait to place PICC until these are negative. Stop Solu-Medrol and start Prednisone 40mg daily-start this afternoon. Continue Neb treatments and acapella. Encourage continued ambulations. Monitor lab. My thanks to Dr Jackson for her expertise! Hospital Course Summary Disclaimer: The visit summary below is not to be considered part of the above Progress Note. Hospital Course: 06/20/17 Solumedrol 125mq IV q 6hrs. Will continue Tamiflu and start Rocephin/Zithromax. Follow lactate level. Will place on Lantus/Novolog while hospitalized. Lovenox for DVT ppx.Hold HRT given risk of DVT. CTA ruled out PE. 06/21/17 Sugars high - increase sliding scale. Decrease IV steroids to q 12 hrs. Vanco started following results of + staph aureus on blood cultures. Redraw in am. Continue Rocephin and Zithromax. Consult Dr. Jackson. 06/22/17 Blood cultures were redrawn this morning. Vancomycin was started last night after + staph aureus found in admission blood cultures. Continues on Rocephin and azithromycin. Dr. Jackson will see patient tomorrow for ID evaluation. Solu-Medrol 125 mg was decreased from every 6 hours to every 12. BS >300 despite SSI. Continue Lantus at bedtime and start scheduled before meal NovoLog 10 units. May restart home saxagliptin. Restart her home benazepril. 06/23/17 Increase Lantus from 15 to 20 and ac Novolog from 10 to 14. Saxagliptin resumed today. Resume metformin at 500mg BID (home dose was 1000mg BID) as pt is having some diarrhea. Will titrate up as tolerated. BS's still >300. Watch BS closely given the resumption of po meds and decrease in steroids. DC Solumedrol. Start Prednisone 40mg po. Dr Jackson saw pt and recommended Ancef q 8 hrs IV x 4 wks. Case management is working on arranging this to hopefully be done at home. Pérez Rodriguez, Ancef initiated. Start Culturelle for diarrhea likely associated with atbx.
--- NOTE | 2017-06-23 08:57 | Infectious Disease Consult ---
Infectious Disease Consult Date of Consultation: 06/23/17 Requesting Physician: Win Berrios IV Reason for Consultation: antibiotic recs History of Present Illness: Ms. Bermudez is a 61 y/o woman who recently had an URI with fever that was thought to be the flu. She reports that she started taking Tamiflu last Wednesday. She started feeling better, but then started having shortness of breath on Wednesday night. She states that she woke up and really couldn't breathe. She thinks she "wasn't thinking very well" either, because she says she waited 4 hours for her to wake up to take her to the hospital, and thinks she shouldn't have done that. She was admitted on Tuesday 06/20. CXR showed R-sided pneumonia. CTA was negative for PE but showed scattered nodular densities bilaterally. She had leukocytosis and lactic acidosis on admission. SHe was started on Rocephin and azithromycin initially. Both sets of blood cultures turned positive for DELANO. She was started on Vancomycin. Her RVP was positive for influenza A on admission. She's also been getting IV steroids for her wheezing. Medications Home Medications Medication Instructions Recorded Confirmed Type Meloxicam 15 mg PO DAILY #0 tab 01/03/15 06/20/17 History Saxagliptin HCl [Onglyza] 5 mg PO DAILY #0 01/03/15 06/20/17 History Albuterol HFA Inhaler [Ventolin 2 puff ORAL INH Q4H PRN 06/20/17 06/20/17 History Hfa 90 mcg/actuation] Atorvastatin Calcium [Atorvastatin 40 mg PO DAILY 06/20/17 06/20/17 History Calcium] Benazepril [Lotensin] 20 mg PO DAILY 06/20/17 06/20/17 History BuPROPion XL [Wellbutrin Xl] 150 mg PO DAILY 06/20/17 06/20/17 History Estradiol [Estrace] 0.5 mg PO DAILY 06/20/17 06/20/17 History Hydrocodone/APAP 7.5/325 [[place] 1 tab PO Q4H PRN 06/20/17 06/20/17 History 7.5/325] Multivit with Iron-Minerals 1 tab PO DAILY 06/20/17 06/20/17 History [Complete Senior] Tramadol [Ultram] 50 - 100 mg PO Q6H PRN 06/20/17 06/20/17 History Metformin [Glucophage] 1 tab PO BIDWM 06/23/17 06/23/17 History Allergies Allergy/AdvReac Type Severity Reaction Status Date / Time No Known Allergies Allergy Verified 06/20/17 11:23 [facility] Patient Stated Medical History Pneumonia Yes Diabetes Mellitus Type 2 Yes Blood Transfusions Yes: no reations Chemotherapy Yes: [facility] Medical History (Last Updated 06/20/17 @ 11:15 by Kristen Walker APRN) Adenocarcinoma of left lung (Acute Medical) Anxiety (Acute Medical) Depression (Acute Medical) H/O appendicitis (Acute Medical) HLD (hyperlipidemia) (Acute Medical) Primary HSV infection of mouth (Acute Medical) Diabetes (Chronic Medical) Not insulin dependent. HTN (hypertension) (Chronic Medical) Surgical History: *Hysterectomy. *Left partial lobectomy (Dr. Oma Tripp). * Appendectomy. Port-a-cath insertion/removal Family History: Family History (Last Updated 06/20/17 @ 11:16 by Kristen Walker APRN) Mother CAD (coronary artery disease) Father Unknown cause of morbidity or mortality - Social History Smoking status: Former smoker Household members: spouse Current residence: Apartment/Private Home Review of Systems All systems PM: 10-point ROS was reviewed, no additional remarkable complaints except - Constitutional Constitutional: Absent: chills, fever(s) - EENMT Eyes: Absent: change in vision - Cardiovascular Cardiovascular: Absent: chest pain - Respiratory Respiratory: Present: cough, dyspnea, wheezing - Gastrointestinal Gastrointestinal: Absent: diarrhea, nausea, vomiting - Genitourinary Genitourinary: Absent: dysuria Exam Vital Signs: Temperature 97.7 F 06/23/17 07:16 Pulse Rate 86 06/23/17 07:16 Respiratory Rate 22 06/23/17 07:50 Blood Pressure 148/69 H 06/23/17 07:16 Pulse Oximetry 97 06/23/17 07:50 Height/Weight/BMI: Height 1.57 m Weight 106.9 kg Body Mass Index 43.2 - Constitutional Present: no acute distress, well nourished, well developed - Routine HEENT Exam Head: Present: normocephalic, atraumatic Eye: Present: EOMI, PERRL ENT: Present: mucous membranes moist, oropharynx clear - Routine Neck Exam Present: supple - Routine Respiratory Exam Present: decreased breath sounds, wheezes (bilaterally), diminished air movement - Routine Cardiovascular Exam Present: RRR - Routine Abdominal Exam Present: soft, normoactive bowel sounds, non distended, non tender. Absent: rebound, guarding - Routine Extremities Exam Absent: cyanosis, clubbing, edema - Routine Skin Exam Absent: rash - Routine Psychiatric Exam Present: normal affect, normal thought process Results - Labs CBC & Chem 7: 06/23/17 04:14 06/23/17 04:14 Microbiology Results: Microbiology 06/22/17 07:58 Peripheral/Iv Start Blood Culture - Preliminary No Growth After 1 Day 06/22/17 07:59 Peripheral/Iv Start Blood Culture - Preliminary No Growth After 1 Day 06/21/17 15:45 Sputum, Cf Patient Gram Stain - Final 06/21/17 15:45 Sputum, Cf Patient Sputum Culture - Preliminary Normal Respiratory Esther Present 06/20/17 blood cultures 06/18 DELANO Impression: Sepsis from a pulmonary source Septicemia with DELANO, present on admission. Lactic acidosis Recent Influenza A s/p Tamiflu H/o adenocarcinoma of the lung, s/p L partial lobectomy and chemotherapy 2009 Asthma with acute exacerbation DM II, not IR, poorly controlled h/o Port-a-Cath, now removed Recommendation: Narrow antibiotics to Ancef 2gm IV q8 hours. I suspect the Staph is the cause of her pneumonia. If her repeat blood cultures remain negative, would place a PICC line. Recommend Ancef for 4 weeks. My office will not be able to provide her Ancef. I'd recommend trying to see if this can be arranged with an infusion company. If not, then recommend Vancomycin through the infusion center. Recommend tapering off steroids as soon as able.
[2017-06-23] MEDS: ENOXAPARIN 40 MG/0.4 ML INJECTION SQ SCH (09:08)
[2017-06-23] MEDS: CEFAZOLIN 2 G in NS 100 ML IV SCH ×2 (10:00→17:14)
[2017-06-23] MEDS: PredniSONE 20 MG TABLET PO SCH (14:46)
[2017-06-23] MEDS: LACTOBACILLUS (15B cfu) CAPSULE PO SCH (17:02)
[2017-06-23] MEDS: ATORVASTATIN 40 MG TABLET PO SCH (20:24)
[2017-06-23] MEDS ORDERED: INSULIN GLARGINE 100unit/ml INJECTION SQ SCH (21:00)
[2017-06-24] MEDS: CEFAZOLIN 2 G in NS 100 ML IV SCH ×2 (01:27→08:25)
[2017-06-24] MEDS: INSULIN ASPART 100unit/ml INJECTION SQ PRN ×2 (06:06→18:22)
[2017-06-24] MEDS: TRAMADOL 50 MG TABLET PO PRN ×2 (06:14→12:18)
[2017-06-24] MEDS: ALBUTEROL/IPRATROPIUM 2.5mg-0.5mg/3ml NEB AEROSOL SCH ×3 (07:00→17:40)
[2017-06-24] MEDS: BUDESONIDE INH.SOLN 0.5mg/2ml NEB AEROSOL SCH (07:00)
[2017-06-24 08:03] VITALS: BP 149/88; PULSE 93; TEMP 97.3
[2017-06-24] MEDS: INSULIN ASPART 100unit/ml INJECTION SQ SCH ×3 (08:24→18:21)
[2017-06-24] MEDS: LACTOBACILLUS (15B cfu) CAPSULE PO SCH ×2 (08:25→18:20)
[2017-06-24] MEDS: ENOXAPARIN 40 MG/0.4 ML INJECTION SQ SCH (08:25)
[2017-06-24] MEDS: BuPROPion XL 150mg (24HR) TABLET PO SCH (08:25)
[2017-06-24] MEDS: PredniSONE 20 MG TABLET PO SCH (08:27)
[2017-06-24] MEDS: SAXAGLIPTIN 5 MG PO SCH (08:27)
[2017-06-24] MEDS: BENAZEPRIL 20 MG TABLET PO SCH (08:27)
[2017-06-24 10:27] VITALS: O2SAT 96
--- NOTE | 2017-06-24 10:40 | Progress Note ---
- Date 06/24/17 Subjective: Patient is seen sitting in bed eating breakfast. She reports she feels much better. She walked 4x yesterday and once this am. She has been off O2 since the night before last. She does get SOA with exertion, but her O2 sat was 93% just after ambulation. Appetite is good. Feels like things are loosening up in her chest - able to bring up some sputum now. She's having some vaginal itching. Has had multiple vaginal yeast infections in past. Does well with Diflucan and prefers this over cream. Objective Vital signs: Temperature 97.3 F 06/24/17 08:00 Pulse Rate 93 06/24/17 08:00 Respiratory Rate 18 06/24/17 10:24 Blood Pressure 149/88 H 06/24/17 08:00 Pulse Oximetry 96 06/24/17 10:24 Height/Weight/BMI: Height 1.57 m Weight 108.5 kg Body Mass Index 43.2 - Constitutional Present: no acute distress, well nourished, well developed - Routine HEENT Exam Head: Present: normocephalic, atraumatic - Routine Respiratory Exam Present: wheezes (slight expiratory - much improved from yesterday) - Routine Cardiovascular Exam Present: RRR, no murmur - Routine Abdominal Exam Present: soft, non distended, non tender - Routine Extremities Exam Present: no edema, normal capillary refill - Routine Skin Exam Present: dry, warm - Routine Neurological Exam Present: alert, oriented X3 - Routine Lymphatic Exam Lymphatic: Absent: adenopathy - Routine Psychiatric Exam Present: normal affect, cooperative Results - Labs CBC & Chem 7: 06/24/17 04:13 06/24/17 04:13 Microbiology Results: Microbiology 06/22/17 07:59 Peripheral/Iv Start Blood Culture - Preliminary No Growth After 2 Days 06/22/17 07:58 Peripheral/Iv Start Blood Culture - Preliminary No Growth After 2 Days 06/21/17 15:45 Sputum, Cf Patient Gram Stain - Final 06/21/17 15:45 Sputum, Cf Patient Sputum Culture - Preliminary Staphylococcus aureus Norma albicans Assessment and Plan (1) Community acquired pneumonia Current visit: Yes Status: Acute (2) Hypoxemia Current visit: Yes Status: Acute Assessment and Plan: Impression Influenza Post-viral CAP Staph aureus bacteremia with DELANO Yeast vaginitis secondary to atbx and hyperglycemia Leukocytosis - POA Acute hypoxemic respiratory failure Sepsis - resolved DM2, uncontrolled on steroids (A1c 10.1) HTN HLD Hx of adenocarcinoma of the lung HRT on estrogen (on hold) Anxiety/depression Morbid Obesity Plan Diflucan 150mg po for yeast vaginitis. Will send patient with Rx for a few more on D/C to use PRN throughout her 4 wk course of IV Ancef. Metformin is being resumed today. Saxagliptin resumed yesterday, continues on scheduled insulin and SSI. BS's are starting to come down. Diabetic eduation consult for home insulin administration and monitoring. Continue Prednisone 40mg po. Day #2 of oral prednisone. Pt is being educated on home administration of her IV Ancef and will have PICC placed today. Potential DC home today. Doing well. DVT Prophylaxis: Lovenox - Physician Narrative Physician: Marco Gunn MD Narrative: Date: 06/24/17 Time: 1645 Have independently interviewed and examined pt. Chart reviewed. Case discussed with CM and my PA. Care plan developed with my supervision; agree with above. Doing well today. Breathing much improved-still gets winded with activities but able to be more active. Eating well. No f/c. Feel ready to go home. Lungs: Improving air movement, faint wheeze on left. No distress on RA CV: regular MSE: awake alert appropriate. Plan: Repeat BC with no growth. PICC line placed today and in position. Outpatient antibiotic arrangements made-patient educated on how to give herself antibiotics. Will need weekly PICC care in infusion center. Weekly lab monitoring. Has had diabetic education - with elevation of A1C at presentation, feel would be prudent to continue Lantus 20 units at night. Continue Prednisone 20mg daily for 4 days then could stop. Tamiflu course completed. F/U with Dr Izquierdo in 1 week for medical evaluation and Dr Jackson in 2 weeks for ID evaluation. Medically stable for discharge to home. See orders for details. Hospital Course Summary Disclaimer: The visit summary below is not to be considered part of the above Progress Note. Hospital Course: 06/20/17 Solu-Medrol 125mq IV q 6hrs. Will continue Tamiflu and start Rocephin/Zithromax. Follow lactate level. Will place on Lantus/NovoLog while hospitalized. Lovenox for DVT ppx. Hold HRT given risk of DVT. CTA ruled out PE. 06/21/17 Sugars high - increase sliding scale. Decrease IV steroids to q 12 hrs. Vancomycin started following results of + staph aureus on blood cultures. Redraw in am. Continue Rocephin and Zithromax. Consult Dr. Jackson. 06/22/17 Blood cultures were redrawn this morning. Vancomycin was started last night after + staph aureus found in admission blood cultures. Continues on Rocephin and azithromycin. Dr. Jackson will see patient tomorrow for ID evaluation. Solu-Medrol 125 mg was decreased from every 6 hours to every 12. BS >300 despite SSI. Continue Lantus at bedtime and start scheduled before meal NovoLog 10 units. May restart home saxagliptin. Restart her home benazepril. 06/23/17 Increase Lantus from 15 to 20 and ac NovoLog from 10 to 14. Saxagliptin resumed today. Resume metformin at 500mg BID (home dose was 1000mg BID) as pt is having some diarrhea. Will titrate up as tolerated. BS's still >300. Watch BS closely given the resumption of po meds and decrease in steroids. DC Solu-Medrol. Start Prednisone 40mg orally. Dr Jackson saw pt and recommended Ancef q 8 hrs IV x 4 wks. Vancomycin Rocephin and azithromycin stopped - Ancef initiated. Case management is working on arranging this to hopefully be done at home. Start Culturelle for diarrhea likely associated with antibiotics. 06/24/17 Diflucan 150mg po for yeast vaginitis. Will send patient with Rx for a few more on D/C to use PRN throughout her 4 wk course of IV Ancef. Metformin is being resumed today. Saxagliptin resumed yesterday, continues on scheduled insulin and SSI. BS's are starting to come down. Diabetic education consult for home insulin administration and monitoring. Continue Prednisone 40mg po. Day #2 of oral prednisone. Pt is being educated on home administration of her IV Ancef and will have PICC placed today. Repeat BC with no growth. PICC line placed today and in position. Outpatient antibiotic arrangements made-patient educated on how to give herself antibiotics. Will need weekly PICC care in infusion center. Weekly lab monitoring. Has had diabetic education - with elevation of A1C at presentation, feel would be prudent to continue Lantus 20 units at night. Continue Prednisone at 20mg daily for 4 days then could stop. Acapella 4 times a day for 1 week, then as needed for congestion. Tamiflu course completed. F/U with Dr Izquierdo in 1 week for medical evaluation. F/U with Dr Jackson in 2 weeks for ID evaluation. Medically stable for discharge to home. See orders for details.
[2017-06-24] MEDS ORDERED: FLUCONAZOLE 150 MG TABLET PO ONE (11:14)
[2017-06-24] MEDS ORDERED: INSULIN ASPART 100unit/ml INJECTION SQ ONE (12:08)
[2017-06-24] MEDS ORDERED: CEFAZOLIN 2 G in NS 50 ML IV SCH (17:15)
--- NOTE | 2017-06-24 17:34 | Discharge Summary ---
Discharge Information Date of admission: 06/20/17 09:37 Anticipated date of discharge: 06/24/17 Attending Physician: Marco Gunn MD Primary care physician: Unique Izquierdo DO Consults: Physician Consult: Kaye Jackson Reason For Exam: Staph aureus bacteremia Human Resources Operations Coordinator Consult-Inpatient Diabetic Consult Diabetic Diagnosis: E11.65 Uncontrolled T2 DM Diabetic Training: Goal Setting Carb Counting Medications Comment: going home on insulin - Discharge Diagnosis (1) Community acquired pneumonia Status: Acute (2) Hypoxemia Status: Acute Discharge diagnosis Acute hypoxemic respiratory failure Associated conditions and complications Sepsis - resolved Staph aureus bacteremia with DELANO Influenza Post-viral CAP Leukocytosis - POA Yeast vaginitis secondary to antibiotics and hyperglycemia DM2, uncontrolled on steroids (A1c 10.1) HTN HLD Hx of adenocarcinoma of the lung HRT on estrogen (on hold) Anxiety/depression Morbid Obesity - Laboratory Labs: Admit Lab 06/20/17 08:25 WBC 17.3 H Hgb 14.1 Hct 43.1 MCV 90.0 Plt Count 218 Neutrophils % (Manual) 81.0 H Band Neutrophils % 7.0 H Lymphocytes % (Manual) 2.0 L Monocytes % (Manual) 10.0 H Admit Lab 06/20/17 06/20/17 08:25 08:30 Sodium 138 Potassium 3.8 Chloride 101 Carbon Dioxide 22 Anion Gap 15 BUN 29.0 H Creatinine 1.1 GFR Calculation 51 BUN/Creatinine Ratio 26 Glucose 295 H Calculated Osmolality 283 H Calcium 9.6 Total Bilirubin 0.40 AST 29 ALT 56 H Alkaline Phosphatase 102 Troponin I < 0.012 B-Natriuretic Peptide 143 Total Protein 7.7 Albumin 4.3 Globulin 3.4 Albumin/Globulin Ratio 1.3 Plasma Lactate 3.2 H A1c 06/23/17 04:14 Hemoglobin A1c 10.1 H Respiratory Panel Positives 06/20/17 11:49 Influenza A (H3) PCR Detected A* 06/24/17 04:13 06/24/17 04:13 - Microbiology Microbiology 06/21/17 15:45 Sputum, Cf Patient Gram Stain - Final 06/21/17 15:45 Sputum, Cf Patient Sputum Culture - Final Staphylococcus aureus Norma albicans Normal Respiratory Esther 06/22/17 07:59 Peripheral/Iv Start Blood Culture - Preliminary No Growth After 2 Days 06/22/17 07:58 Peripheral/Iv Start Blood Culture - Preliminary No Growth After 2 Days - Radiology Radiology: Date of Exam: 06/20/17 PROCEDURE: CHEST 2-VIEWS UPRIGHT (PA & LAT) FINDINGS: Patchy airspace opacities in the right middle lobe. Small left pleural effusion. No pneumothorax. Heart size and mediastinal contours are stable. Pulmonary vascularity is normal. Impression: Right-sided pneumonia. Date of Exam: 06/20/17 PROCEDURE: CT angio pulm emboli FINDINGS: There are scattered patchy somewhat centrilobular poorly defined nodules with both upper and lower lung zone distribution. Pulmonary arteries: There is no evidence for right heart strain. No filling defects to suggest acute pulmonary embolus. Cardiovascular: No pericardial effusion. Cardiac size is normal. No pericardial effusion. Aorta is well opacified. There is no aortic dissection. Lymph nodes: No supraclavicular adenopathy. There are no enlarged axillary, hilar, or mediastinal lymph nodes. Pleura: No pleural effusion is present. There is perhaps mild degenerative disc disease of the thoracic spine. The vertebral body heights appear relatively well-preserved. IMPRESSION: Nonspecific, somewhat scattered and poorly defined centrilobular this could represent postinfectious or postinflammatory process. Date of Exam: 06/21/17 PROCEDURE: XR chest 2V Findings: There are scant patchy poorly defined interstitial appearing nodular opacities in the mid to lower lung peralta with blunting of the left costophrenic angle. Overall heart size is normal. No definite pulmonary vascular congestion. Impression: Scattered nonspecific patchy somewhat poorly defined nodular opacities with blunting of the left costophrenic angle, likely representing pleural parenchymal scarring. No significant change from prior exam. History of Present Illness HPI: Trina is a 61 yo WF who was previously diagnosed with Influenza. Symptoms onset Wednesday or Wednesday. She was seen by Dr. Izquierdo, and started on Tamiflu. She is scheduled to complete Tamiflu course today, and has been taking prednisone as well. She reports she was feeling better until last night, when she went "downhill fast." She has been taking her Tamiflu as prescribed- has two doses left. She has been feeling more ill, and more SOA and presented to the ED today for further assessment. She has been found to be hypoxic, as well as showing clinical markers for sepsis. While in the ED, she in noted to have a mildly elevated D-Dimer. However, multiple risk factors for PE, including history of malignancy (not active), recent immobility, and +HRT (estrogen). She underwent CTA, which confirmed infiltrates, but no evidence of PE. Given severity of illness, hypoxia, sepsis, failed outpatient therapy- she is to be admitted under the care of the hospitalists. She reports she is feeling a bit better. We reviewed allergies- she states no allergy to any antibiotics or inhaled medications. She uses ProAir (albuterol) at home w/o difficulty. She only has issues with one OTC cold medication, which causes palpitations. She cannot recall the name. We reviewed current symptoms, at bedside- discussed plan of care and questions answered. Chart reviewed for collateral information. For complete details of the H&P refer to that documen. Objective Vital signs: Temperature 97.3 F 06/24/17 08:00 Pulse Rate 93 06/24/17 08:00 Respiratory Rate 18 06/24/17 10:24 Blood Pressure 149/88 H 06/24/17 08:00 Pulse Oximetry 96 06/24/17 10:24 Height/Weight/BMI: Height 1.57 m Weight 108.5 kg Body Mass Index 43.2 Hospital Course This is a general summary of the patient's hospital course. For more details refer to the complete medical record. Hospital course: 06/20/17 Solu-Medrol 125mq IV q 6hrs. Supplemental O2. Will continue Tamiflu and start Rocephin/Zithromax. Follow lactate level. Hold metformin due to elevated lactate. Will place on Lantus/NovoLog while hospitalized. Lovenox for DVT ppx. Hold HRT given risk of DVT. CTA ruled out PE. 06/21/17 Sugars high - increase sliding scale. Decrease IV steroids to q 12 hrs. Vancomycin started following results of + staph aureus on blood cultures. Redraw in am. Continue Rocephin and Zithromax. Consult Dr. Jackson. 06/22/17 Blood cultures were redrawn this morning. Vancomycin was started last night after + staph aureus found in admission blood cultures. Continues on Rocephin and azithromycin. Dr. Jackson will see patient tomorrow for ID evaluation. Solu-Medrol 125 mg was decreased from every 6 hours to every 12. BS >300 despite SSI. Continue Lantus at bedtime and start scheduled before meal NovoLog 10 units. May restart home saxagliptin. Restart her home benazepril. 06/23/17 Increase Lantus from 15 to 20 and ac NovoLog from 10 to 14. Saxagliptin resumed today. Resume metformin at 500mg BID (home dose was 1000mg BID) as pt is having some diarrhea. Will titrate up as tolerated. BS's still >300. Watch BS closely given the resumption of po meds and decrease in steroids. DC Solu-Medrol. Start Prednisone 40mg orally. Dr Jackson saw pt and recommended Ancef q 8 hrs IV x 4 wks. Vancomycin Rocephin and azithromycin stopped - Ancef initiated. Case management is working on arranging this to hopefully be done at home. Start Culturelle for diarrhea likely associated with antibiotics. 06/24/17 Discharge Diflucan 150mg po x1 for yeast vaginitis. Will send patient with Rx for a few more on D/C to use PRN throughout her 4 wk course of IV Ancef. Metformin is being resumed today. Saxagliptin resumed yesterday, continues on scheduled insulin and SSI. BS's are starting to come down. Diabetic education consult for home insulin administration and monitoring. Continue Prednisone 40mg po. Day #2 of oral prednisone. Pt is being educated on home administration of her IV Ancef and will have PICC placed today. Repeat BC with no growth. PICC line placed today and in position. Outpatient antibiotic arrangements made-patient educated on how to give herself antibiotics. Will need weekly PICC care in infusion center. Weekly lab monitoring. Has had diabetic education - with elevation of A1C at presentation, feel would be prudent to continue Lantus 20 units at night. Continue Prednisone at 20mg daily for 4 days then could stop. Acapella 4 times a day for 1 week, then as needed for congestion. Mucinex DM BID for 1 week, then as needed. Tamiflu course completed. F/U with Dr Izquierdo in 1 week for medical evaluation. F/U with Dr Jackson in 2 weeks for ID evaluation. Medically stable for discharge to home. See orders for details. Time spent with patient: discharge greater than 30 minutes Resuscitation Status: Full Code Discharge Plan - Discharge Disposition Discharge Date: 06/24/17 Disposition: 01 Discharged Home, Self-Care *Condition: Stable Reason For Visit (Visit label in EMR): pneumonia - Discharge Medications *Discharge Medications: New Cefazolin [Kefzol] 2 g IV Q8HR vial Fluconazole [Diflucan 150 mg Tablet] 150 mg PO DAILY PRN #4 tab PRN Reason: Vaginal yeast infection Guaifenesin/Dm [Mucinex Dm] 1 tab PO BID PRN #1 box PRN Reason: Cough /Congestion PredniSONE [Deltasone 20 mg] 20 mg PO WB #4 tab Acidoph/L.bulg/Bif.b/S.thermop [Bacid Caplet] 2 cap PO BIDWM tab Insulin Glargine,Hum.rec.anlog [Lantus] 20 unit SQ HS #1 vial Continue Meloxicam 15 mg PO DAILY #0 tab Hydrocodone/APAP 7.5/325 [[place] 7.5/325] 1 tab PO Q4H PRN PRN Reason: Pain Estradiol [Estrace] 0.5 mg PO DAILY Benazepril [Lotensin] 20 mg PO DAILY Atorvastatin Calcium 40 mg PO DAILY BuPROPion XL [Wellbutrin Xl] 150 mg PO DAILY Multivit with Iron-Minerals [Complete Senior] 1 tab PO DAILY Saxagliptin HCl [Onglyza] 5 mg PO DAILY #0 Tramadol [Ultram] 50 - 100 mg PO Q6H PRN PRN Reason: Pain Albuterol HFA Inhaler [Ventolin Hfa 90 mcg/actuation] 2 puff ORAL INH Q4H PRN PRN Reason: Shortness Of Air/Wheezing Metformin [Glucophage] 1 tab PO BIDWM - Discharge Packet/Instructions *Diet: 2000 KCAL ADA low sodium *Activity: Increase as tolerated *Pain Management/Treatment: Continue prior pain medications *Wound Care: N/A Additional Instructions: Use acapella 4 times a day for 1 week-then as needed for cough/congestion. May use over the counter Mucinex DM twice a day as needed for cough/congestion. Yougurt can help keep bowels regular with antibiotic use - or may use Probiotic (ie Culturelle). Check sugars 4 times a day and record. PICC dressing care weekly (and as needed) at infusion center at [facility]. Weekly lab in infusion center. *Expected Signs/Symptoms: Improvement of breathing and fucntional status. *Notify Physician if: Temp >100.4. Severe decline in breathing. Uncontrolled diarrhea. *During Business Hours Contact: Dr Izquierdo *After Business Hours Contact: Call [facility] and have Dr Izquierdo or her covering provider contacted *Pending Lab/Results: No Pending Lab - Referrals/Follow Up *Referrals/Follow Up: Unique Izquierdo DO [Family Provider] - 1 Week (Hospital follow up. Pneumonia, Bacteremia with DELANO. On 4 weeks of IV Ancef. Lantus started during hospitalization. A1C elevated. ) Kaye Jackson MD [Physician] - 2 Weeks (Hopsital follow up for DELANO bacteremia) - Patient Handouts Patient Handouts: Pneumonia (GEN) - Dismissal Complete Discharge Instructions are:: Complete Physician Narrative - Narrative Physician: Marco Gunn MD Attestation Narrative: Date: 06/24/17 Time: 173 I have independently interviewed and examined patient prior to discharge. See my progress note from today for details. Medically stable for discharge to home.
[2017-06-24 17:44] VITALS: RESP 22
== END 2017-06-24 18:53 | disposition home or self-care (01) | DRG 871 ==
LOC: ED 07:55 → MED 09:37 → SUATTDRO 09:37 → MED 10:24
PROVIDERS: ADMIT Hospitalist; ATTEND Hospitalist